=== PATIENT | female | born 1995 | race Caucasian/White ===

== ENCOUNTER 2018-08-28 12:10 | Outpatient (CLI) | payer SELFPAY ==
[2018-08-28 12:18] VITALS: BMI 33.1
[2018-08-28] MEDS: Terbutaline 1 MG/ML Vial 0.25 MG SC (13:01)
--- NOTE | 2018-08-29 00:35 | PCM.HP.OB ---
- Problem List (1) Transverse lie Status: Acute History Date of Admission: 08/28/18 Final CATINA: 08/30/18 Gestational age: 39 Weeks and 6 Days History of this : This is a 23 year-old, at 39w6d weeks gestational age presents as a referral from Maty Reyes for external cephalic version. She has had a variable presentation. She has been receiving care by the manager statistics and declines routine lab screenings. She is planning a home if the version is successful. she denies any vb lof admits good fm and denies regualr ctx. Surgical History: Surgical History (Last Updated 08/29/18 @ 00:37 by Yamile Pizarro MD) H/O heart artery stent Z95.5 age 14 secondary to murmur and persistent vessel open after History of appendectomy Z90.49 Allergies No Known Allergies Allergy (Unverified 08/28/18 11:44) Home Medications: Home Medications Prenatabs FA 1 tab PO DAILY 08/28/18 Smoking Status: Never smoker Alcohol: None Number of Fetus(es): 1 Heart Tracin moderate variability reactive no decelerations category I tracing\ [place]: regular History Past Pregnancies: Past Pregnancies 2 previous term uncomplicated weight 9 lbs- one home [facility] Expected Infant Delivery Method: Spontaneous Vaginal Review of Systems Constitutional: Denies: Fever, Malaise Eyes: Denies: Blurred vision, Vision Change HEENT: Denies: Head Aches, Visual Changes Cardiovascular: Denies: Chest Pain, Palpitations Respiratory: Denies: Cough, Shortness of Breath, Wheezing Gastrointestinal: Denies: Abdominal Pain, Diarrhea, Nausea, Vomiting Genitourinary: Denies: Dysuria, Hematuria Musculoskeletal: Denies: Joint Pain, Muscle pain Skin: Denies: Lesions, Rash Neurological: Denies: Blurred vision, Focal weakness, Headaches Psychiatric: Denies: Anxiety, Depression Endocrine: Denies: Heat/ Cold Intolerance Hematologic/ Lymphatic: Denies: Easy Bruising, Easy Bleeding Physical Exam General: Alert, Cooperative, No apparent distress HEENT: Atraumatic, Normocephalic. Negative for: Thyromegaly, Lymphadenopathy Cardiovascular: Regular rate Lungs: Normal air movement Abdomen: Soft, Non Tender, Gravid Neurological: Deep Tendon Reflexes 2+/4 and Symmetrical, Neuro grossly intact. Negative for: Clonus CIRCULATION TENDER: Normal external genitalia. Negative for: Vulvar lesions Estimated gestational size: Appropriate for gestational size Presentation: Transverse Assessment/Plan All Active Problems (Last Reviewed 08/28/18 @ 11:45 by Kortney Squires) Transverse lie (Acute) This is a 23 year-old, at 39W6D weeks gestational age PRSENTS WITH TRANSVERSE LIE recommend ECV. Patient states she is RH positive as does her record reflect this by her manager statistics. type and screen sent. reactive nst
--- NOTE | 2018-08-29 00:39 | HP.PCM_ITS ---
- Problem List (1) Transverse lie Status: Acute History Date of Admission: 08/28/18 Final CATINA: 08/30/18 Gestational age: 39 Weeks and 6 Days History of this : This is a 23 year-old, at 39w6d weeks gestational age presents as a referral from Maty Reyes for external cephalic version. She has had a variable presentation. She has been receiving care by the syrup maker and declines routine lab screenings. She is planning a home if the version is successful. she denies any vb lof admits good fm and denies regualr ctx. Surgical History: Surgical History (Last Updated 08/29/18 @ 00:37 by Yamile Pizarro MD) H/O heart artery stent Z95.5 age 14 secondary to murmur and persistent vessel open after History of appendectomy Z90.49 Allergies No Known Allergies Allergy (Unverified 08/28/18 11:44) Home Medications: Home Medications Prenatabs FA 1 tab PO DAILY 08/28/18 Smoking Status: Never smoker Alcohol: None Number of Fetus(es): 1 Heart Tracin moderate variability reactive no decelerations category I tracing\ [place]: regular History Past Pregnancies: Past Pregnancies 2 previous term uncomplicated weight 9 lbs- one home [facility] Expected Infant Delivery Method: Spontaneous Vaginal Review of Systems Constitutional: Denies: Fever, Malaise Eyes: Denies: Blurred vision, Vision Change HEENT: Denies: Head Aches, Visual Changes Cardiovascular: Denies: Chest Pain, Palpitations Respiratory: Denies: Cough, Shortness of Breath, Wheezing Gastrointestinal: Denies: Abdominal Pain, Diarrhea, Nausea, Vomiting Genitourinary: Denies: Dysuria, Hematuria Musculoskeletal: Denies: Joint Pain, Muscle pain Skin: Denies: Lesions, Rash Neurological: Denies: Blurred vision, Focal weakness, Headaches Psychiatric: Denies: Anxiety, Depression Endocrine: Denies: Heat/ Cold Intolerance Hematologic/ Lymphatic: Denies: Easy Bruising, Easy Bleeding Physical Exam General: Alert, Cooperative, No apparent distress HEENT: Atraumatic, Normocephalic. Negative for: Thyromegaly, Lymphadenopathy Cardiovascular: Regular rate Lungs: Normal air movement Abdomen: Soft, Non Tender, Gravid Neurological: Deep Tendon Reflexes 2+/4 and Symmetrical, Neuro grossly intact. Negative for: Clonus RN ENT: Normal external genitalia. Negative for: Vulvar lesions Estimated gestational size: Appropriate for gestational size Presentation: Transverse Assessment/Plan All Active Problems (Last Reviewed 08/28/18 @ 11:45 by Kortney Squires) Transverse lie (Acute) This is a 23 year-old, at 39W6D weeks gestational age PRSENTS WITH TRANSVERSE LIE recommend ECV. Patient states she is RH positive as does her record reflect this by her syrup maker. type and screen sent. reactive nst
--- NOTE | 2018-08-29 00:39 | PCM.OPRPT ---
Problem List (1) Transverse lie Status: Acute Report of Operation Date of Procedure: 08/28/18 Pre-Operative Diagnosis: transverse lie Post-Operative Diagnosis: cephalic Surgery/Procedure Performed:: external cephalic version Description of Surgical Findings:: transverse back up head maternal right Type of Anesthesia:: Other - terb given Special Medications: terb Description of Procedure: After reactive NST ultrasound confirmed that the fetus was in a transverse presentation with the head in the maternal right back up. Steady constant pressure was placed over the presenting part in the pelvis and upward pressure on the left side of the abdomen and downward pressure on the right side of the abdomen was employed to encourage spontaneous turning of the to a cephalic presentation. This was accomplished after several attempts and then a binder was placed to ensure stability. Patient was monitored afterwards and was reactive and reassuring and stable for discharge to home. After patient was discharged to home it was noted that the patient's type and screen was actually Rh- even though she stated it was Rh+. Her meat processor was contacted and was explained to her that she needed to be given a RhoGam dose immediately due to the procedure as indicated.
--- NOTE | 2018-08-29 00:42 | OP.PCM_ITS ---
Problem List (1) Transverse lie Status: Acute Report of Operation Date of Procedure: 08/28/18 Pre-Operative Diagnosis: transverse lie Post-Operative Diagnosis: cephalic Surgery/Procedure Performed:: external cephalic version Description of Surgical Findings:: transverse back up head maternal right Type of Anesthesia:: Other - terb given Special Medications: terb Description of Procedure: After reactive NST ultrasound confirmed that the fetus was in a transverse presentation with the head in the maternal right back up. Steady constant pressure was placed over the presenting part in the pelvis and upward pressure on the left side of the abdomen and downward pressure on the right side of the abdomen was employed to encourage spontaneous turning of the to a cephalic presentation. This was accomplished after several attempts and then a binder was placed to ensure stability. Patient was monitored afterwards and was reactive and reassuring and stable for discharge to home. After patient was discharged to home it was noted that the patient's type and screen was actually Rh- even though she stated it was Rh+. Her cranberry farm supervisor was contacted and was explained to her that she needed to be given a RhoGam dose immediately due to the procedure as indicated.
== END 2018-08-28 16:30 | disposition home or self-care (01) ==
LOC: WPOUT 12:15 → WP 12:16
PROVIDERS: Referring Provider Obstetrics & Gynecology; Visit Provider Obstetrics & Gynecology
DX: O32.2XX0 Maternal care for transverse and oblique lie, not applicable or unspecified (principal); Z3A.39 39 weeks gestation of pregnancy
CPT/HCPCS: 59025; 59050; 59412; 76815; 86850; 86900; 99218; G0378

== ENCOUNTER 2020-08-17 09:45 | Outpatient (CLI) | payer SELFPAY ==
[2020-08-17 10:09] VITALS: BP 125/71; TEMP 36.2
[2020-08-17 10:10] VITALS: PULSE 81; O2SAT 95
[2020-08-17 10:13] VITALS: BMI 33.5
[2020-08-17] MEDS: Lactated Ringers 1,000 ML 125 ML IV (10:35)
[2020-08-17 10:43] LABS: Absolute Lymphocyte Count 1.88 X10^3/uL (0.83-4.51); Absolute Neutrophil Count 6.2 X10^3/uL (2.0-7.7); Basophil# 0.02 X10^3/uL; Basophil% 0.2 % (0-1); Eosinophil# 0.06 X10^3/uL; Eosinophils% 0.7 % (0-5); Hematocrit 35.8 % (37-47); Hemoglobin 12.2 g/dL (12.0-15.0); Lymphocyte # 1.88 X10^3/ul (4.0); Lymphocyte % 21.3 % (19-41); Mean Corp Hgb Conc 34.1 g/dL (32-36); Mean Corpuscular Volume 91.1 fL (81-99); Mean Platelet Vol. 9.7 fl (6.2-12.0); Monocyte# 0.59 X10^3/uL; Monocyte% 6.7 % (0-10); NRBC Flagged by Analyzer 0 % (0-5); Neutrophil # 6.21 X10^3/uL (2.7-7.7); Neutrophil % 70.5 % (47-70); Platelet Count 218 K/mm3 (150-450); Red Blood Count 3.93 M/mm3 (4.2-5.4); White Blood Count 8.8 K/mm3 (4.4-11.0)
[2020-08-17] MEDS: Terbutaline 1 MG/ML Vial 0.25 MG SC (11:22)
[2020-08-17 12:38] VITALS: BP 125/74; PULSE 91; PULSE 96; TEMP 36.6; O2SAT 96
--- NOTE | 2020-08-18 08:49 | PCM.HP.OB ---
- Problem List (1) Transverse lie Status: Acute History Date of Admission: 08/28/18 Final CATINA: 08/21/20 Gestational age: 39 Weeks and 4 Days History of this : This is a 25 year-old, G 4P3, at 39 weeks gestational age for evaluation and management due to malpresentation. Patient has been receiving routine care from a parquetry floor layer Maty Reyes in the community and has a history of a breech presentation that was converted via external cephalic version in her last . She has had 3 uncomplicated vaginal births has been healthy without complication and has had fundal heights corresponding to her gestational age. Surgical History: Surgical History (Last Updated 08/29/18 @ 00:[address] Yamile Pizarro MD) H/O heart artery stent Z95.5 age 14 secondary to murmur and persistent vessel open after History of appendectomy Z90.49 Allergies No Known Allergies Allergy (Verified 08/17/20 10:14) Home Medications: Home Medications Prenatabs FA 1 tab PO DAILY 08/28/18 Acidophilus 1 tab PO DAILY 08/17/20 Calcium 1 tab PO DAILY 08/17/20 Vitamin C 1 tab PO DAILY 08/17/20 Smoking Status: Never smoker NST - FHR Rate Baby A Baseline: 150 Variability:: Moderate Accelerations:: 15 x 15 Decelerations:: None NST Reactive:: Yes FHR Category:: Category I Uterine Activity:: no Regular History Past Pregnancies: Past Pregnancies Delivery Date Name GA/ Weeks Outcome Route Wt Sex Labor Length Anesthesia Delivery Location Provider FOB Expected Infant Delivery Method: Spontaneous Vaginal Review of Systems Constitutional: Denies: Fever, Malaise Eyes: Denies: Blurred vision, Vision Change HEENT: Denies: Head Aches, Visual Changes Cardiovascular: Denies: Chest Pain, Palpitations Respiratory: Denies: Cough, Shortness of Breath, Wheezing Gastrointestinal: Denies: Abdominal Pain, Diarrhea, Nausea, Vomiting Genitourinary: Denies: Dysuria, Hematuria Musculoskeletal: Denies: Joint Pain, Muscle pain Skin: Denies: Lesions, Rash Neurological: Denies: Blurred vision, Focal weakness, Headaches Psychiatric: Denies: Anxiety, Depression Endocrine: Denies: Heat/ Cold Intolerance Hematologic/ Lymphatic: Denies: Easy Bruising, Easy Bleeding Physical Exam Vitals: Vital Signs Temp Pulse BP Pulse Ox 97.9 F 96 125/74 H 96 08/17/20 12:38 08/17/20 12:38 08/17/20 12:38 08/17/20 12:38 General: Alert, Cooperative, No apparent distress HEENT: Atraumatic, Normocephalic. Negative for: Thyromegaly, Lymphadenopathy Cardiovascular: Regular rate Lungs: Normal air movement Abdomen: Soft, Non Tender, Gravid Neurological: Deep Tendon Reflexes 2+/4 and Symmetrical, Neuro grossly intact. Negative for: Clonus DIE ASSEMBLER: Normal external genitalia. Negative for: Vulvar lesions Estimated gestational size: Appropriate for gestational size Presentation: Transverse - Back up maternal right head Assessment/Plan All Active Problems (Last Reviewed 08/28/18 @ 11:45 by Kortney Squires) Breech presentation (Acute) Transverse lie (Acute) This is a 25 year-old, at 39 weeks gestational age [facility] with transverse lie requesting external cephalic version patient was counseled regarding the risk benefits and alternatives of the procedure, she is Rh- but so is her therefore she is declining RhoGam. After reactive NST and ultrasound to confirm normal fluid and no significant cord entanglement external cephalic version was performed and successful. Patient was monitored for an hour afterwards with reassuring heart tones and discharged to home in stable condition to follow-up with her machine hand as previously scheduled. Patient requesting and planning home . Office Visits / Consults: [id number] OV L3 Est
--- NOTE | 2020-08-18 08:52 | PCM.OPRPT ---
Problem List (1) Transverse lie Status: Acute Report of Operation Date of Procedure: 08/17/20 Pre-Operative Diagnosis: transverse lie head maternal right back up Post-Operative Diagnosis: cephalic presentation Surgery/Procedure Performed:: external cephalic version Type of Anesthesia:: None Special Medications: Terbutaline Description of Procedure: Ultrasound confirmed transverse presentation with maternal right side being the location of the infant's head. No significant cord entanglement was seen and placenta was noted to not be a previa or in the lower uterine segment. LOGAN appeared grossly adequate. Encouraging a forward roll steady pressure was exerted to turn the 's head and buttocks counterclockwise and after 2 attempts this was successful and confirmed on ultrasound with the head with good engagement. Continuous monitoring was done for an hour after the procedure and was reassuring with no abnormalities. Patient requested discharge to home for planned home with fabric lay out worker as originally planned. Multi Select Codes - Urinary/Genital Urinary/Genital CPT Codes: 08991 ECV - no anesthesia needed
== END 2020-08-17 14:15 | disposition home or self-care (01) ==
LOC: WPOUT 09:59 → WP 09:59
PROVIDERS: Referring Provider Obstetrics & Gynecology; Visit Provider Obstetrics & Gynecology
DX: O32.1XX0 Maternal care for breech presentation, not applicable or unspecified (principal); O32.2XX0 Maternal care for transverse and oblique lie, not applicable or unspecified; Z3A.39 39 weeks gestation of pregnancy
CPT/HCPCS: 59412; 96360; 96361 ×2; 36415; 59025; 59050; 85025; 86850; 86900; 86901; 96372; 99218; J7120; G0378

== ENCOUNTER 2020-08-28 08:00 | Inpatient (IN) | payer SELFPAY ==
[2020-08-28] VITALS (75 sets, daily range): BP systolic 117–137; BP diastolic 57–86; PULSE 68–190; RESP 16–18; TEMP 36.1–37.2; O2SAT 82–100; BMI 34.1
[2020-08-28] MEDS: Lactated Ringers 1,000 ML 50 ML IV (08:20)
[2020-08-28 09:04] LABS: Absolute Lymphocyte Count 1.82 X10^3/uL (0.83-4.51); Absolute Neutrophil Count 6.8 X10^3/uL (2.0-7.7); Basophil# 0.03 X10^3/uL; Basophil% 0.3 % (0-1); Eosinophil# 0.09 X10^3/uL; Eosinophils% 0.9 % (0-5); Hematocrit 35.7 % (37-47); Lymphocyte # 1.82 X10^3/ul (4.0); Mean Corp Hgb Conc 33.6 g/dL (32-36); Mean Corpuscular Hgb 30.9 pg (27.0-32.0); Monocyte# 0.84 X10^3/uL; Monocyte% 8.8 % (0-10); NRBC Flagged by Analyzer 0 % (0-5); Neutrophil # 6.76 X10^3/uL (2.7-7.7); Neutrophil % 70.4 % (47-70); Platelet Count 226 K/mm3 (150-450); RBC Distribution Width CV 13.2 % (11.6-14.6); RBC Distribution Width SD 43.5 fl (35.1-43.9); Red Blood Count 3.88 M/mm3 (4.2-5.4); White Blood Count 9.6 K/mm3 (4.4-11.0)
[2020-08-28 09:19] LABS: Amphetamine Urine VISTA NEGATIVE (<1000 ng/mL); Barbiturate Urine VISTA NEGATIVE (< 200 ng/mL); Benzodiazepine Urine VISTA NEGATIVE (< 200 ng/mL); Cocaine Urine VISTA NEGATIVE (< 300 ng/mL); Ecstacy Urine VISTA NEGATIVE (< 500 ng/mL); Methadone Urine VISTA NEGATIVE (< 300 ng/mL); PCP Urine VISTA NEGATIVE (< 25 ng/mL); THC Urine VISTA NEGATIVE (< 50 ng/mL); Vista UDS pH Range 6
[2020-08-28] MEDS: Oxytocin 30 units/NS 500 ml 30 UNITS/500 ML IV.SOLN IV (09:27)
[2020-08-28 09:33] LABS: Rubella IgG Reactive (Nonreactive)
[2020-08-28 10:08] LABS: HIV - WCH Non-Reactive (Nonreactive); Hepatitis B Surface Antigen Non-Reactive (Nonreactive); Hepatitis C Antibody Non-Reactive (Nonreactive)
[2020-08-28 10:31] LABS: Group B Strep DNA By PCR Negative (Negative); Internal Control PASS; Probe Check PASS; Specimen Processing Control PASS
[2020-08-28 11:07] LABS: Chlamydia Trachomatis by PCR Negative (Negative); Neisserai gonorrhoeae by PCR Negative (Negative); Probe Check PASS; Sample Adequacy Control PASS; Specimen Processing Control PASS
--- NOTE | 2020-08-28 11:43 | PCM.HP.OB ---
History Date of Admission: 08/28/18 Final CATINA: 08/21/20 Gestational age: 41 Weeks and 0 Days History of this : This is a 25 year-old, G 4P3 at 41 weeks gestational age presents with unstable lie head on maternal right. Patient had a successful external cephalic version a week and a half ago and has not gone into labor and then was noted to be transverse again today by her product management intern. She has received care by a product management intern Maty Reyes and other than unstable lie has had an uncomplicated . She has not had a formal ultrasound or routine labs. Surgical History: Surgical History (Last Updated 08/29/18 @ 00:[address] Yamile Pizarro MD) H/O heart artery stent Z95.5 age 14 secondary to murmur and persistent vessel open after History of appendectomy Z90.49 Allergies No Known Allergies Allergy (Verified 08/17/20 10:14) Home Medications: Home Medications Prenatabs FA 1 tab PO DAILY 08/28/18 Acidophilus 1 tab PO DAILY 08/17/20 Calcium 1 tab PO DAILY 08/17/20 Vitamin C 1 tab PO DAILY 08/17/20 Smoking Status: Never smoker Alcohol: None NST - FHR Rate Baby A Baseline: 150 Variability:: Moderate Accelerations:: 15 x 15 Decelerations:: None NST Reactive:: Yes FHR Category:: Category I Uterine Activity:: irregular History Past Pregnancies: Past Pregnancies 3 previous term vaginal deliveries with home births. Previous also had external cephalic version that was successful and then she proceeded to go into spontaneous labor and deliver at home. Labs: Mom's Microbiology 08/28/20 Unknown Genital vaginal Group B Streptococcus Culture - Pending 08/28/20 08:55 Mucosa - Nose SARS-CoV-2 Antigen (Rapid) - Final Mom's Labs & Results 08/28/20 08/28/20 08/28/20 08:20 08:20 08:20 WBC 9.6 RBC 3.88 L Hgb 12.0 Hct 35.7 L MCV 92.0 MCH 30.9 MCHC 33.6 RDW Std Deviation 43.5 RDW Coeff of Alexandra 13.2 Plt Count 226 MPV 10.0 Immature Gran % (Auto) 0.600 Neut % (Auto) 70.4 H Lymph % (Auto) 19.0 Lipscomb % (Auto) 8.8 Eos % (Auto) 0.9 Baso % (Auto) 0.3 Absolute Neuts (auto) 6.8 Absolute Lymphs (auto) 1.82 Nucleated RBC % 0 Urine Opiates Screen Urine Methadone Screen Ur Barbiturates Screen Ur Phencyclidine Scrn Ur Amphetamines Screen U Methamphetamin-MDMA U Benzodiazepines Scrn Urine Cocaine Screen U Cannabinoids Screen Ur Drug Screen Comment RPR Chlam trachomat DNA PCR Hep Bs Antigen Hepatitis C Antibody HIV 1&2 Antibody N.gonorrhoeae DNA (PCR) Rubella IgG Antibody Reactive Group B Strep DNA Specimen Comment Blood Type O NEGATIVE Antibody Screen NEGATIVE 08/28/20 08/28/20 08/28/20 08:20 08:20 08:20 WBC RBC Hgb Hct MCV MCH MCHC RDW Std Deviation RDW Coeff of Alexandra Plt Count MPV Immature Gran % (Auto) Neut % (Auto) Lymph % (Auto) Lipscomb % (Auto) Eos % (Auto) Baso % (Auto) Absolute Neuts (auto) Absolute Lymphs (auto) Nucleated RBC % Urine Opiates Screen NEGATIVE Urine Methadone Screen NEGATIVE Ur Barbiturates Screen NEGATIVE Ur Phencyclidine Scrn NEGATIVE Ur Amphetamines Screen NEGATIVE U Methamphetamin-MDMA NEGATIVE U Benzodiazepines Scrn NEGATIVE Urine Cocaine Screen NEGATIVE U Cannabinoids Screen NEGATIVE Ur Drug Screen Comment RPR Pending Chlam trachomat DNA PCR Hep Bs Antigen Non-Reactive Hepatitis C Antibody Non-Reactive HIV 1&2 Antibody Non-Reactive N.gonorrhoeae DNA (PCR) Rubella IgG Antibody Group B Strep DNA Specimen Comment Blood Type Antibody Screen 08/28/20 09:10 WBC RBC Hgb Hct MCV MCH MCHC RDW Std Deviation RDW Coeff of Alexandra Plt Count MPV Immature Gran % (Auto) Neut % (Auto) Lymph % (Auto) Lipscomb % (Auto) Eos % (Auto) Baso % (Auto) Absolute Neuts (auto) Absolute Lymphs (auto) Nucleated RBC % Urine Opiates Screen Urine Methadone Screen Ur Barbiturates Screen Ur Phencyclidine Scrn Ur Amphetamines Screen U Methamphetamin-MDMA U Benzodiazepines Scrn Urine Cocaine Screen U Cannabinoids Screen Ur Drug Screen Comment RPR Chlam trachomat DNA PCR Negative Hep Bs Antigen Hepatitis C Antibody HIV 1&2 Antibody N.gonorrhoeae DNA (PCR) Negative Rubella IgG Antibody Group B Strep DNA Negative Specimen Comment Not Reportable Blood Type Antibody Screen Course Did the patient receive No care? Labs Blood Type: O RH: NEGATIVE RPR/VDRL/Syphilis Nonreactive Rubella status Immune HbSAg Negative Date Done: 08/28/20 HIV/AIDS Non-Reactive Group B Strep: Collected on Admission Current Obstetrical History Gestational Diabetes No Incompetent Cervix No Infertility No IUGR No Macrosomia No Hypertension/Pre-eclampsia No Placenta Previa/Abruption No PTL/PROM No Uterine anomaly No Oligohydramnios No Polyhydramnios No Multiple gestation No Past Medical History Asthma No Diabetes No Hypertension No Heart disease Yes: stent in heart Mitral valve prolapse No Neurologic/Seizure disorder/ No Migraines Kidney disease No Liver disease No Varicosities No Clotting disorders/Hx of DVT No Thyroid Dysfunction No Other medical diseases No Psychiatric disorders No Major trauma No Abnormal PAP smear No Sleep apnea No Mammogram in the last 2 years No Social History Marital Status: Alleged father Juan Hx Smoking No Smoking Status Never smoker Expected Delivery Method: Spontaneous Vaginal Review of Systems Constitutional: Denies: Fever, Malaise Eyes: Denies: Blurred vision, Vision Change HEENT: Denies: Head Aches, Visual Changes Cardiovascular: Denies: Chest Pain, Palpitations Respiratory: Denies: Cough, Shortness of Breath, Wheezing Gastrointestinal: Denies: Abdominal Pain, Diarrhea, Nausea, Vomiting Genitourinary: Denies: Dysuria, Hematuria Musculoskeletal: Denies: Joint Pain, Muscle pain Skin: Denies: Lesions, Rash Neurological: Denies: Blurred vision, Focal weakness, Headaches Psychiatric: Denies: Anxiety, Depression Endocrine: Denies: Heat/ Cold Intolerance Hematologic/ Lymphatic: Denies: Easy Bruising, Easy Bleeding Physical Exam Vitals: Vital Signs Temp Pulse BP Pulse Ox 98.5 F 73 121/68 H 100 08/28/20 11:36 08/28/20 11:36 08/28/20 11:36 08/28/20 11:36 General: Alert, Cooperative, No apparent distress HEENT: Atraumatic, Normocephalic. Negative for: Thyromegaly, Lymphadenopathy Cardiovascular: Regular rate Lungs: Normal air movement Abdomen: Soft, Non Tender, Gravid Neurological: Deep Tendon Reflexes 2+/4 and Symmetrical, Neuro grossly intact. Negative for: Clonus OCEAN EXPORT ACCOUNT MANAGER: Normal external genitalia. Negative for: Vulvar lesions Estimated gestational size: Appropriate for gestational size Presentation: Cephalic Assessment/Plan All Active Problems (Last Reviewed 08/28/18 @ 11:45 by Kortney Squires) Rh negative status during (Acute) Breech presentation (Acute) Transverse lie (Acute) This is a 25 year-old, G 4P3 at 41 weeks gestational age presents in transverse presentation Patient consented for external cephalic version. Gentle pressure applied to the back of the head on the maternal right and with gentle constant pressure infant was converted to vertex and abdominal binder placed. Pitocin started for induction of labor. Patient declines epidural at this time. Plan Pitocin per protocol and AROM when able. [id number]: [id number] V
[2020-08-28] MEDS: Lactated Ringers 500 ML 999 ML IV (17:27)
[2020-08-28] MEDS: Amnioinfusion- 0.9% NS 1,000 ML IV.SOLN. 999 ML INTRA-UTER (17:55)
--- NOTE | 2020-08-28 18:37 | PCM.PN.BLA ---
Progress Note heart rate tracing category 2/ 150 with recurrent periodic variables lasting 40 to 60 seconds going 60-80 beats below the baseline. 30 minutes after position changes and a fluid bolus was started Pitocin decreased, amnioinfusion was given with IUPC placed. After another 30 minutes pattern remained persistent category 2 patient is still remote from delivery /2 and posterior. Suspect nuchal cord limiting descent into the pelvis and causing recurrent decelerations. Patient and counseled and recommend proceeding with primary for delivery. STROKE Vital Signs/Narrative: Vital Signs Temp Pulse BP Pulse Ox 08/28/20 18:01 98.9 F 78 134/68 H 100 08/28/20 16:13 98.9 F 76 131/77 H 08/28/20 14:52 98.5 F 74 117/69 98
--- NOTE | 2020-08-28 18:44 | OP.PCM_ITS ---
Problem List (1) Rh negative status during Status: Acute (2) Transverse lie Status: Acute Report of Operation Date of Procedure: 08/28/20 Delivery Classification: VIJAY Final CATINA: 08/21/20 Gestational age: 41 Weeks and 0 Days cable television technician: Daniella Montilla Type of Anesthesia:: Spinal Date of Procedure: 08/28/20 Pre-Operative Diagnosis: recurrent heart rate decelerations category 2 tracing remote from delivery Indications: same Indications for : Distress, Arrrest of Descent Description of Procedure: Patient presented for induction of labor and external cephalic version for the second time due to unstable lie. Version was successful and Pitocin started for induction of labor. After 10 hours of Pitocin patient had only made a centimeter and a half of cervical change and the head was still high and she began having recurrent heart rate decelerations that after an hour of interventions had not resolved. Due to a category 2 tracing that was persistent and patient is still remote from delivery the decision for primary low transverse was made. Spinal anesthesia was placed without difficulty. Rosales catheter was placed. The patient was placed in the dorsal supine position with leftward tilt. Patient was prepped and draped in the normal sterile fashion. Pfannenstiel skin incision was made with the scalpel and carried through to the underlying layer of fascia with the scalpel. Fascia was nicked in the midline and the incision extended laterally. The rectus bellies were dissected off superiorly and inferiorly with out complication both sharply and bluntly. The peritoneum was entered digitally. The incision was stretched and a low transverse uterine incision was made with the scalpel. The 's head was delivered atraumatically followed by the anterior and posterior shoulders without complication the rest of the delivered. The cord was clamped and cut and the infant was handed off to awaiting nurse. The placenta was delivered spontaneously immediately following and was noted to be intact and have a three-vessel cord. The uterus was exteriorized cleared of all clots and debris, and the incision was closed in a double layer closure using #1 Monocryl. The ovaries and fallopian tubes were noted to be within normal limits. The uterus was returned to the maternal abdomen and gutters were cleared of all clots and debris. The peritoneum was closed with 3-0 Monocryl in a running fashion. Gloves were changed prior to fascial closure. Fascia was closed with 0 PDS in a running fashion. Subcutaneous tissue was copiously irrigated and the skin was closed with 3-0 Monocryl in a subcuticular fashion. Mepilex dressing was applied without complication. Patient was taken to recovery in stable condition. It was discussed with the patient that based on the clinical information obtained during this encounter, combined with her history, at this time I would recommend vaginal deliveries for future deliveries if further pregnancies are desired. Amniotic Membrane Rupture Type: Artificial Placenta Disposition: [facility] Cord Entanglement: Around neck x 1, tight - Minimal [place]'s jelly Nuchal Cord Compression: With compression Cord Vessel Description: 3 Vessels Esitmated Blood Loss (ml): 400 Infant Gender: Female Delayed cord clamping: Yes Antibiotic Given: Ancef 2 grams IV x1, Zithromax 500 mg/5 mL X1 Pt instructed on risks of surgery: Bleeding, Anesthesia Risks, Infection, Injury to surrounding structure(s) including bowel and bladder Complications: None - Admit VTE Documentation VTE Present on Admission: No VTE Mechan Device Prophylaxis: SCD's Multi Select Codes - Urinary/Genital Urinary/Genital CPT Codes: 78921 delivery only
[2020-08-28] MEDS: Acetaminophen 500 MG Tablet PO (18:45)
[2020-08-28] MEDS: Sodium Citrate/Citric Acid 30 ML UDC PO (18:46)
[2020-08-28] MEDS: Cefazolin 2 GM in 0.9% Normal Saline 100 ML IV (18:52)
--- NOTE | 2020-08-28 18:52 | DCINST_ITS ---
Discharge Diet: No Restrictions Discharge Activity: May Not Drive - for 2 weeks, May not drive while taking narcotic pain medications., May Shower, May Take a Tub Bath - in 7 days May resume sexual activity in: 4-6 weeks Lifting Restrictions: 20 pounds Additional Activity Instructions:: Nothing in the vagina for 4-6 weeks. You may return to work/school in 6 weeks. Call your doctor if your incision/area has: Continuous Slow Oozing, Sudden Increased Bleeding, Increased Pain/ Swelling, Increased Redness, Foul Smelling Discharge Call your doctor if you observe: Fever of 101 or Higher, Using more than one pad per hour - for 2 hours Suture Line Care: Avoid Pulling/Pushing, Avoid Pinching/Bending Cleanse incision/area with: Keep Dressing Clean & Dry Additional Instructions: If you experience any of the following, contact your healthcare provider. * Bleeding that soaks a pad every hour for 2 hours * Fever 100.4 or higher * Unrelieved incision or abdominal pain * Swelling, redness, discharge or bleeding from your incision or episiotomy site * Your incision begins to separate * Problems urinating (including inability to urinate or burning while urinating). * Visual changes * Severe headache * Flu-like symptoms * Pain or redness in one of both of your breasts * Pain, warmth, tenderness or swelling in your legs, especially the calf area * Frequent nausea and vomiting * Symptoms of depression or anxiety If you experience any of the following, call 911 or go to the nearest Emergency Room. * Chest pain * Problems breathing * Seizure activity * Partial or complete paralysis of a body part, slurred speech, weakness or drooping of the face, or a sudden inability to walk or hold your balance Allergies/Adverse Reactions: Allergies No Known Allergies Allergy (Verified 08/17/20 10:14) Medications to take at Discharge Prenatabs FA 1 tab PO DAILY 08/28/18 Acidophilus 1 tab PO DAILY 08/17/20 Calcium 1 tab PO DAILY 08/17/20 Vitamin C 1 tab PO DAILY 08/17/20 Naproxen [Naprosyn] 250 - 500 mg PO Q8H PRN PRN #30 tab 08/28/20 Oxycodone HCl/Acetaminophen [Percocet 5-325] 1 - 2 tablet PO Q6H PRN PRN 7 Days #15 tablet 08/28/20 The following prescriptions were given: Naproxen [Naprosyn] 250 - 500 mg PO Q8H PRN PRN #30 tab PRN Reason: MILD PAIN Transmission Status: Pending to [facility] Oxycodone HCl/Acetaminophen [Percocet 5-325] 1 - 2 tablet PO Q6H PRN PRN 7 Days #15 tablet PRN Reason: Pain Transmission Status: Sent to [facility] Follow-Up: Call to make an appointment with your doctor for an incision check in 1-2 weeks. You will also need a 6 week post- follow up appointment. Test results from this visit will be discussed in further detail at your follow- up appointment, if applicable. Please Follow Up With: Yamile Pizarro MD - Call to make an appointment for an incision check in 1-2 [phone] When: You will need a post- check in 6 weeks. Primary Care Physician: Care Physician,No Primary [Primary Care Provider] -
[2020-08-28] MEDS: 0.9% Saline Lock 10 ML Syringe IV (20:15)
[2020-08-28] MEDS: Oxytocin 30 units/NS 500 ml 30 UNITS/500 ML IV.SOLN 167 UNITS IV (20:15)
[2020-08-28] MEDS: Acetaminophen 500 MG Tablet 1000 MG PO (22:58)
[2020-08-28] MEDS: Lactated Ringers 1,000 ML 100 ML IV (23:01)
[2020-08-29] VITALS (99 sets, daily range): BP systolic 114–127; BP diastolic 53–67; PULSE 31–107; RESP 16–18; TEMP 36.6–37.2; O2SAT 16–100
--- NOTE | 2020-08-29 01:32 | NURSING ---
Pt refused IV toradol. Education provided to pt.
--- NOTE | 2020-08-29 01:48 | NURSING ---
Report given to Kym MEYERS, taking over pt and care at this time.
--- NOTE | 2020-08-29 03:18 | PCM.PN.OB ---
Patient Problems: Active and Suspected Problems (Last Reviewed 08/28/18 @ 11:45 by Kortney Squires) Rh negative status during (Acute) Transverse lie (Acute) Subjective: Patient doing well without complaints. Tolerating PO. Ambulating and voiding without difficulty. feeding well. Denies chest pain, shortness of breath, calf pain/swelling, fevers, chills, lightheadedness. - Physical Exam Vitals/I&O's: Vital Signs Temp Pulse Resp BP Pulse Ox 98.7 F 67 18 127/59 H 98 08/29/20 01:32 08/29/20 03:16 08/29/20 01:32 08/29/20 03:16 08/29/20 03:13 Oxygen Delivery Method Room Air Weight: 205 lb 4.006 oz Body Mass Index (BMI) 34.1 Intake and Output for Last 24 Hours 08/27/20 08/28/20 08/29/20 23:59 23:59 23:59 Intake Total 2416.46 / 2416.46 300 / 300 Output Total 150 / 150 400 / 400 Balance 2266.46 / 2266.46 -100 / -100 General: Alert, Oriented x3 Microbiology Past 72 Hours 08/28/20 08:55 Mucosa - Nose SARS-CoV-2 Antigen (Rapid) - Final Laboratory Results 08/28/20 08:20: WBC 9.6, RBC 3.88 L, Hgb 12.0, Hct 35.7 L, MCV 92.0, MCH 30.9, MCHC 33.6, RDW Std Deviation 43.5, RDW Coeff of Alexandra 13.2, Plt Count 226, MPV 10.0, Immature Gran % (Auto) 0.600, Neut % (Auto) 70.4 H, Lymph % (Auto) 19.0, [place] % (Auto) 8.8, Eos % (Auto) 0.9, Baso % (Auto) 0.3, Absolute Neuts (auto) 6.8, Absolute Lymphs (auto) 1.82, Nucleated RBC % 0 08/28/20 08:20: Blood Type O NEGATIVE, Antibody Screen NEGATIVE 08/28/20 08:20: Rubella IgG Antibody Reactive 08/28/20 08:20: RPR Pending 08/28/20 08:20: Urine Opiates Screen NEGATIVE, Urine Methadone Screen NEGATIVE, Ur Barbiturates Screen NEGATIVE, Ur Phencyclidine Scrn NEGATIVE, Ur Amphetamines Screen NEGATIVE, U Methamphetamin-MDMA NEGATIVE, U Benzodiazepines Scrn NEGATIVE, Urine Cocaine Screen NEGATIVE, U Cannabinoids Screen NEGATIVE, Ur Drug Screen Comment 08/28/20 08:20: Hep Bs Antigen Non-Reactive, Hepatitis C Antibody Non-Reactive, HIV 1&2 Antibody Non-Reactive 08/28/20 09:10: Chlam trachomat DNA PCR Negative, N.gonorrhoeae DNA (PCR) Negative, Group B Strep DNA Negative, Specimen Comment Not Reportable Current Medications Acetaminophen (Acetaminophen 500 Mg Tablet) 1,000 mg PO Q6H [facility] Last Admin: 08/28/20 22:58 Dose: 1,000 mg Documented by: Bisacodyl (Bisacodyl 10 Mg Suppository) 10 mg RECTAL UD PRN PRN Reason: If no BM Diphenhydramine HCl (Diphenhydramine 25 Mg Capsule) 25 mg PO Q6H PRN PRN PRN Reason: ITCHING Stop: 08/29/20 19:26 Hydrocortisone (Hydrocortisone 2.5% Crm) 1 applic TOPICAL TID PRN PRN; Protocol PRN Reason: Discomfort Lactated Ringer's () 1,000 mls @ 100 mls/hr IV .Q10H [facility] Last Admin: 08/28/20 23:01 Dose: 100 mls/hr Documented by: Ketorolac Tromethamine (Ketorolac 30 Mg/Ml Syringe) 30 mg IV Q6H [facility] Stop: 08/29/20 19:01 Last Admin: 08/29/20 01:38 Dose: Not Given Documented by: Methylergonovine Maleate (Methylergonovine 0.2 Mg/Ml Ampul) 0.2 mg IM X1 PRN PRN Reason: Uterine Atony Nalbuphine HCl (Nalbuphine 10 Mg/Ml Ampul) 5 mg IV Q3H PRN PRN PRN Reason: ITCHING Stop: 08/29/20 19:26 Naloxone HCl (Naloxone 0.4 Mg/Ml Syringe) 0.02 mg IV Q1M PRN PRN Reason: RR <10 and pt unresponsive Naproxen (Naproxen 250 Mg Tablet) 500 mg PO Q8H [facility] Ondansetron HCl (Ondansetron 4 Mg/2 Ml Vial) 4 mg IV Q4H PRN PRN PRN Reason: Nausea Oxycodone HCl (Oxycodone 5 Mg Tablet) 5 - 10 mg PO Q4H PRN PRN PRN Reason: Pain Score 4-10 Prochlorperazine Edisylate (Prochlorperazine 10 Mg/2 Ml Vial) 10 mg IV Q6H PRN PRN PRN Reason: NAUSEA Senna/Docusate Sodium (Senna/Docusate Sodium 1 Tablet) 0 tablet PO DAILY ROCIO Simethicone (Simethicone 80 Mg Tablet) 80 mg PO PCHS PRN PRN Reason: Indigestion/stomach pain Sodium Chloride (0.9% Saline Lock 10 Ml Syringe) 5 - 15 ml IV UD PRN PRN Reason: SALINE FLUSH Last Admin: 08/28/20 20:15 Dose: 10 ml Documented by: Medical Necessity - Tobacco Use Smoking Status: Never smoker Assessment/Plan All Active Problems (Last Reviewed 08/28/18 @ 11:45 by Kortney Squires) Rh negative status during (Acute) Breech presentation (Acute) Transverse lie (Acute) s/p LTCS PPD # 1 1. routine post care 2. breast feeding- support given 3. rh negative- rhogam PRN 4. rubella immune
--- NOTE | 2020-08-29 03:30 | NURSING ---
0300 Assisted pt up to BR with first post op ambulation. Pt tolerated well with minimal pain, denies c/o dizziness. Pericare done, care addressed with pt.
[2020-08-29] MEDS: Acetaminophen 500 MG Tablet 1000 MG PO ×3 (05:15→19:00)
[2020-08-29 05:37] LABS: Hematocrit 33.1 % (37-47); Mean Corp Hgb Conc 33.2 g/dL (32-36); Mean Corpuscular Hgb 30.9 pg (27.0-32.0); Platelet Count 188 K/mm3 (150-450); RBC Distribution Width CV 13.2 % (11.6-14.6); RBC Distribution Width SD 45.1 fl (35.1-43.9); Red Blood Count 3.56 M/mm3 (4.2-5.4); White Blood Count 10.2 K/mm3 (4.4-11.0)
[2020-08-29] MEDS: Ketorolac 30 MG/ML Syringe IV (14:57)
[2020-08-29] MEDS: 0.9% Saline Lock 10 ML Syringe IV (15:00)
--- NOTE | 2020-08-29 15:44 | NURSING ---
1455 pt c/o gas pains- pt repositioned to left side; pt medicated with mylicon and toradol
--- NOTE | 2020-08-29 15:45 | NURSING ---
1525 pt states that she passed lots of gas and feels much better. pt states that she is going to take a nap
[2020-09-03 01:42] LABS: Rapid Plasmin Reagin (RPR) NONREACTIVE (NONREACTIVE)
== END 2020-08-29 21:20 | disposition home or self-care (01) | DRG 788 ==
PROVIDERS: Admitting Provider Obstetrics & Gynecology; Visit Provider Obstetrics & Gynecology
PROC: (CPT 59514; principal; 2020-08-17 11:45)
DX: O76 Abnormality in fetal heart rate and rhythm complicating labor and delivery (principal); Z37.0 Single live birth; O26.899 Other specified pregnancy related conditions, unspecified trimester; Z67.91 Unspecified blood type, Rh negative; O32.2XX0 Maternal care for transverse and oblique lie, not applicable or unspecified; O48.0 Post-term pregnancy; Z3A.41 41 weeks gestation of pregnancy; O69.1XX0 Labor and delivery complicated by cord around neck, with compression, not applicable or unspecified; O62.1 Secondary uterine inertia
CPT/HCPCS: 59025; 59050; 80307; 85025; 85027; 86592; 86703; 86762; 86803; 86850; 86900; 86901; 87081; 87340; 87426; 87491; 87591; 87653; 99218; J7030; J7120; A4216; G0378; J2405

== ENCOUNTER → 2022-07-08 | Outpatient (CLI) | payer SELFPAY ==
--- NOTE | 2022-07-08 12:16 | US_ITS ---
STUDY: SECOND AND THIRD TRIMESTER OBSTETRICAL ULTRASOUND REASON FOR EXAM: Female, 27 years old positioning LMP: 10/13/2021. TECHNIQUE: Transabdominal TECHNICAL QUALITY: Adequate. PRIOR ULTRASOUND: None. FINDINGS: There is a single intrauterine fetus. The fetus is in a transverse lie with the head on the maternal right side. There is demonstrated cardiac activity with a heart rate of 144 bpm. There is a normal amniotic fluid volume. The largest amniotic fluid pocket measures 5.1 cm. The amniotic fluid index (LOGAN) is 12.9 cm. The placenta is fundal and posterior in location. There are Grade 1 placental changes. The cervix measures 4 cm in length. The adnexal regions are not visualized. BIOMETRY: BPD: 9.24 cm: 37 weeks, 4 days HC: 33.95 cm: 39 weeks, 0 days AC: 36.2 cm: 40 weeks, 1 days FL: 7.17 cm: 36 weeks, 5 days CI: 81% FL/BPD: 78% FL/HC: FL/AC: 20% HC/AC: 0.94 age by current US: 38 weeks, 2 days. CATINA by current US: 07/20/2022. Estimated weight: 3654 grams, +/- 548 grams, 80 %. Age by LMP: 38 weeks, 2 days. CATINA by LMP: 07/20/2022. US/OB Limited With Biometrics IMPRESSION: Single live intrauterine gestation with a mean gestational age of 38 weeks and 2 days. The position is transverse lie with head on maternal right. Electronically Signed: Matt Burns MD at 15:10 EST ,
== END | disposition home or self-care (01) ==
PROVIDERS: Referring Provider Obstetrics & Gynecology; Visit Provider Obstetrics & Gynecology
DX: O32.1XX0 Maternal care for breech presentation, not applicable or unspecified (principal); Z3A.38 38 weeks gestation of pregnancy
CPT/HCPCS: 76816; 87077; 87081; 87186

== ENCOUNTER 2022-07-15 09:45 | Inpatient (IN) | payer SELFPAY ==
[2022-07-15] VITALS (17 sets, daily range): BP systolic 97–123; BP diastolic 50–74; PULSE 55–90; RESP 16–18; TEMP 36.1–36.9; O2SAT 94–100; BMI 35.9
[2022-07-15] MEDS: Lactated Ringers 1,000 ML 999 ML IV (10:15)
[2022-07-15 10:31] LABS: White Blood Count 7.9 K/mm3 (4.4-11.0)
[2022-07-15 10:32] LABS: Mucous, Urine 0 SEEN /hpf (<or=2+); Red Blood Cells-Urine 0 SEEN /hpf (0-5)
[2022-07-15 10:32] LABS: Absolute Lymphocyte Count 1.56 X10^3/uL (0.83-4.51); Absolute Neutrophil Count 5.4 X10^3/uL (2.0-7.7); Basophil# 0.02 X10^3/uL; Basophil% 0.3 % (0-1); Eosinophil# 0.08 X10^3/uL; Hematocrit 37.7 % (37-47); Hemoglobin 13.2 g/dL (12.0-15.0); Lymphocyte # 1.56 X10^3/ul (0.83-4.51); Lymphocyte % 19.8 % (19-41); Mean Corpuscular Hgb 33.2 pg (27.0-32.0); Mean Platelet Vol. 9.7 fl (6.2-12.0); Monocyte# 0.78 X10^3/uL; Monocyte% 9.9 % (0-10); NRBC Flagged by Analyzer 0 % (0-5); Neutrophil # 5.39 X10^3/uL (2.7-7.7); Neutrophil % 68.5 % (47-70); Platelet Count 211 K/mm3 (150-450); RBC Distribution Width CV 13.2 % (11.6-14.6); Red Blood Count 3.97 M/mm3 (4.2-5.4)
[2022-07-15 10:36] LABS: Color, Urine Yellow (Yellow); Glucose, Dipstick Normal (Normal); Ketone-Dipstick Negative (Negative); Leukocyte Esterase-Dipstick 25 /ul (Negative); Nitrite-Dipstick Negative (Negative); Occult Blood-Urine Negative /ul (Negative); Protein-Dipstick Negative (Negative); Specific Gravity, Urine 1.015 (1.002-1.030); Urine Bilirubin Dipstick Negative (Negative); Urine Clarity Sl. Cloudy (Clear); Urine Urobilinogen Normal (Normal); Urine pH 6.5 (5.0 - 8.0)
[2022-07-15] MEDS: Acetaminophen 500 MG Tablet 1000 MG PO ×3 (10:41→23:26)
[2022-07-15 10:42] LABS: Bacteria 1+ /hpf (None Seen); Squamous Epithelial Cells - UA 0-5 SEEN /hpf (5-10); White Blood Cells 0-5 SEEN /hpf (0-5)
[2022-07-15 10:58] LABS: Amphetamine Urine VISTA NEGATIVE (<1000 ng/mL); Barbiturate Urine VISTA NEGATIVE (< 200 ng/mL); Benzodiazepine Urine VISTA NEGATIVE (< 200 ng/mL); Cocaine Urine VISTA NEGATIVE (< 300 ng/mL); Ecstacy Urine VISTA NEGATIVE (< 500 ng/mL); Methadone Urine VISTA NEGATIVE (< 300 ng/mL); PCP Urine VISTA NEGATIVE (< 25 ng/mL); THC Urine VISTA NEGATIVE (< 50 ng/mL); Vista UDS pH Range 6
--- NOTE | 2022-07-15 10:59 | HP.PCM.OB_ITS ---
HPI - General General Date of Admission: 07/15/22 HPI Narrative DARLENE SHETTY, is a 27 @ 39 weeks who presents to L&D for repeat section. She was seen one time in our office as a referral from Maty Reyes, a heel layer in the community. The baby has also been in the breech presentation. GbS was collected at her last visit and formal scan was performed to rule out previa and gbs was pos, ultrasound was normal, breech presentation with normal LOGAN. Maternal Data Information CATINA Calculator Estimated Delivery Date Method Current WG Current Estimate 07/20/22 LMP (Certain) 39w 2d PFSH PFS Medical History (Updated 07/15/22 @ 10:17 by Ann Jacob) Superficial varicosities Home Medications Prenatabs FA 1 tab PO DAILY Check with primary doctor 08/28/18 [History Last Taken 07/14/22 20:30] ferrous sulfate 325 mg (65 mg iron) tablet 325 mg PO DAILY anemia 07/08/22 [History Last Taken 07/14/22 20:30] Allergy/AdvReac Type Severity Reaction Status Date / Time No Known Allergies Allergy Verified 07/15/22 10:31 Family History Grandfather No problems noted. Grandfather Myocardial infarction Grandmother Cancer Surgical History (Updated 07/15/22 @ 10:17 by Ann Jacob) H/O heart artery stent History of appendectomy Previous section S/P Social History (Updated 07/08/22 @ 09:29 by Erica Cordero) Smoking Status: Never smoker alcohol intake: never substance use type: does not use caffeine: No seatbelt use: always do you feel safe at home: Yes additional social history: [employer] Patient is a stay at home mom History 5 Elective abortions Hx Para 4 Spontaneous abortions Hx # Term Pregnancies Ectopic pregnancies Hx # Pregnancies Multiple births # of living children Past Pregnancies Del. Date Name GA/Weeks Outcome Route Bth Weight Infant Gen Labor Lgth Anesthesia Del Locatn Provider FOB Unknown Ynes live - full term Unknown 2016 Brion[facility] live - full term Unknown Melanie Unknown [facility] Dr. Osmel zaynab Delivery Date: Last Updated by: Erica Cordero Version Visit Details OB Flowsheet Initial Weight: Not Recorded Date -?-?-?-?-?-?-?-?-?-?-?-?- EGA Weight BP Urine Prot -?-?-?-?-?-?-?-?-?-?-?-?- Glucose FHR FuHt Pres Dilation -?-?-?-?-?-?-?-?-?-?-?-?- Effaced St Visit Note 07/08/22 -?-?-?-?-?--?-?-?-?-?-?-?- 38w 2d 211 lb 2 oz 119/79 -?-?-?-?-?-?-?-?-?-?-?-?- 145 39 Breech 0 -?-?-?-?-?-?-?-?-?-?-?-?- -4 JV- new transfer from Maty Reyes JV- new transfer from Maty denton. See HPI ROS Constitutional Constitutional: Denies change in weight, fatigue, fever(s), headache(s), poor appetite or weakness Eyes Eyes: Denies blurry vision, change in vision, seeing flashes or spots in vision ENT HEENT: Denies dizziness, headache(s), loss taste/smell or sore throat Cardiovascular Cardiovascular: Denies chest pain, dizziness, dyspnea, irregular heart rhythm, leg edema, palpitations, rapid heart rate or vomiting Respiratory/Chest Respiratory/Chest: Denies chest tightness, cough, dyspnea or breast pain Gastrointestinal Gastrointestinal: Denies abdominal pain, anorexia, constipation, cramping, diarrhea, hemorrhoids, vomiting or weight changes Genitourinary Genitourinary: Denies dysuria, flank pain, genital lesions, genital pain, urinary frequency or urinary urgency Musculoskeletal Musculoskeletal: Denies back pain, difficulty walking, joint pain, limited range of motion, muscle cramps or numbness Integumentary Integumentary: Denies lesions or unusual bruising Neurologic Neurologic: Denies abnormal movements, abnormal speech, dizziness, numbness, seizure-like activity or syncope Psychiatric Psychiatric: Denies anxiety, behavioral changes, change in appetite, change in libido, cognitive impairment, confusion, depression, difficulty concentrating, hallucinations or suicidal thoughts Endocrine Endocrinology: Denies excessive sweating, polydipsia or polyuria Hematologic/Lymphatic Hematologic/Lymphatic: Denies easy bleeding, easy bruising or lymphadenopathy Allergic/Immunologic Allergic/Immunologic: Denies itchy eyes, lip swelling, seasonal rhinorrhea, rhinitis, throat swelling, tongue swelling, eczemia, wheezing or asthma Vital Signs Vital Signs Vital Signs: 07/15/22 10:18 07/15/22 10:18 07/15/22 10:16 Temperature Temperature Source Temporal Pulse Rate 82 Respiratory Rate Blood Pressure 123/67 H Blood Pressure Mean BP Systolic 123 BP Diastolic 67 Blood Pressure Source Blood Pressure Position Blood Pressure Location Pulse Ox Oxygen Delivery Method 07/15/22 10:16 07/15/22 10:16 07/15/22 10:15 Temperature 98.3 F 98.3 F Temperature Source Temporal Pulse Rate 82 Respiratory Rate 17 Blood Pressure 123/67 H Blood Pressure Mean 85 BP Systolic BP Diastolic Blood Pressure Source Monitor Blood Pressure Position Semi-Fowlers Blood Pressure Location Left Arm Pulse Ox 97 97 Oxygen Delivery Method Room Air Weight Weight: 216 lb 0.848 oz Body Mass Index (BMI) 35.9 Physical Exam Const alert, oriented x3, no apparent distress and healthy appearing General Appearance: cooperative; Negative for anxious HEENT normocephalic Face and Sinus: normal facial exam Eyes EOMs intact bilaterally and no scleral icterus General Eye: normal appearance of both eyes Neck full ROM and supple Lymph Lymphatic: no lymphadenopathy noted Chest Chest: abnormal inspection of the chest Resp normal respiratory effort Effort and Inspection: able to speak in complete sentences Cardio regular rate GI soft to palpation and non-tender Inspection: gravid Palpation: soft; Negative for tender external exam normal Back/Spine no CVA tenderness Extremity normal to inspection, full ROM and no clubbing, cyanosis or edema General Extremity: Negative for calf tenderness or edema Skin Lesions: no lesions Rashes: no rashes Psych mental status grossly normal Labs Labs Labs: Blood Type O NEGATIVE Antibody Screen NEGATIVE Hct 37.7 % (37-47) Hgb 13.2 g/dL (12.0-15.0) Obstetrics US Syphilis Total Ab Pending Rubella IgG Antibody Reactive (Nonreactive) Hep Bs Antigen Non-Reactive (Nonreactive) HIV 1&2 Antibody Non-Reactive (Nonreactive) Group B Strep DNA Negative (Negative) Rhogam given: No Assessment & Plan (1) Breech presentation: COMMENT: @ 39 weeks. prior section plan for repeat . scheduled next week with JV PLAN: ERAS protocol for repeat section After discussing the patient's diagnosis and treatment plan options, patient wishes to proceed with surgical management. I have discussed with the patient the risks, benefits, and alternatives of the procedure which include but are not limited to risks of anesthesia, bleeding, infection, possible damage to bowel, bladder, or surrounding vasculature which could lead to additional surgery to evaluate any complications. Patient agrees to procedure and wishes to proceed. (2) Rh negative status during : COMMENT: FOB also Rh negative per patient (3) : (4) Supervision of normal : (5) Anemia affecting : (6) Positive GBS test:
[2022-07-15 11:07] LABS: Rubella IgG Reactive (Nonreactive); Syphilis Antibodies Non-reactive
[2022-07-15 11:10] LABS: Bedside Glucose 67 mg/dL (74-106)
[2022-07-15] MEDS: Lactated Ringers 1,000 ML 150 ML IV (11:18)
[2022-07-15 11:24] LABS: HIV - WCH Non-Reactive (Nonreactive); Hepatitis B Surface Antigen Non-Reactive (Nonreactive); Hepatitis C Antibody Non-Reactive (Nonreactive)
--- NOTE | 2022-07-15 11:28 | DCINST_ITS ---
Discharge Instructions Diet Discharge Diet: No restrictions Activity Discharge Activity: May Not Drive (for 2 weeks or while taking narcotic pain medications.), May Shower and May Take a Tub Bath (in 7 days.) May resume sexual activity in: 4-6 weeks Weight Bearing Status: Full weight bearing Lifting Restrictions: 20 pounds Dressing / Incision Call your doctor if your incision/area has: Continuous Slow Oozing, Sudden Increased Bleeding, Increased Pain/ Swelling, Increased Redness and Foul Smelling Discharge Call your doctor if you observe: Fever of 101 or Higher and Using more than 1 pad per hour Suture Line Care: Avoid Pulling/Pushing and Avoid Pinching/Bending Cleanse incision/area with: Soap & Water and Keep Dressing Clean & Dry Follow Up Care Please Follow Up With: Annika Vance DO When: Call [phone] to make an appointment for an incision check in 1-2 weeks. Test Results: Test results from this visit will be discussed in further detail at your follow- up appointment, if applicable. Discharge Plan Admission Admit Date/Time: 07/15/22 09:45 Primary Reason for Your Visit: section Attending Provider: Annika Vance Primary Care Provider: DAVIDE GRIFFIN Discharge Orders/Prescriptions Prescriptions: New oxycodone-acetaminophen [Percocet] 5-325 mg tablet 1 tab PO Q4H PRN (Reason: pain) 7 Days Qty: 30 0RF Rx Instructions: 1-2 tabs q 4 hrs as needed for pain naproxen 500 mg tablet 500 mg PO BID PRN (Reason: pain) Qty: 30 0RF Continued ferrous sulfate 325 mg (65 mg iron) tablet 325 mg PO DAILY Prenatabs FA 1 tab PO DAILY Referrals / Follow Up: DAVIDE GRIFFIN [Other] Disposition Disposition (needs filled in before D/C Order can be placed): Home, Self Care
[2022-07-15] MEDS: Sodium Citrate/Citric Acid 30 ML UDC PO (12:02)
[2022-07-15] MEDS: Cefazolin 2 GM in 0.9% Normal Saline 100 ML IV (12:12)
[2022-07-15 12:43] LABS: Chlamydia Trachomatis by PCR Negative (Negative); Neisserai gonorrhoeae by PCR Negative (Negative); Probe Check PASS; Sample Adequacy Control PASS; Specimen Processing Control PASS
--- NOTE | 2022-07-15 13:09 | OP.PCM_ITS ---
Assessment & Plan (1) Status post section: (2) Breech presentation: COMMENT: @ 39 weeks. prior section plan for repeat . scheduled next week with JV (3) Rh negative status during : COMMENT: FOB also Rh negative per patient (4) : (5) Supervision of normal : (6) Anemia affecting : (7) Positive GBS test: Maternal Data Information CATINA Calculator Estimated Delivery Date Method Current WG Current Estimate 07/20/22 LMP (Certain) 39w 2d Details Operative Information Date of Procedure: 07/15/22 Pre-Operative Diagnosis: , 39 weeks, breech presentation, prior section Post-Operative Diagnosis: , 39 weeks, breech presentation, prior section , bicornuate uterus Indications for : Breech Classification: Scheduled Procedure Type: low transverse upholstery tech #1: Afshan Tineo Type of Anesthesia: Spinal Antibiotic Given: Ancef 2 grams IV x1 Estimated Blood Loss: 500cc Findings Description of Procedure: The patient is a 27 y/o @ 39 weeks presented for repeat . Spinal anesthesia was placed without difficulty. Rosales catheter was placed. The patient was placed in the dorsal supine position with leftward tilt. Patient was prepped and draped in the normal sterile fashion. Pfannenstiel skin incision was made with the scalpel and carried through to the underlying layer of fascia with the scalpel. Fascia was nicked in the midline and the incision extended laterally. The rectus bellies were dissected off superiorly and inferiorly with out complication both sharply and bluntly. The peritoneum was entered digitally. The incision was stretched and a low transverse uterine incision was made with the scalpel. The 's buttocks was identified and delivered through the incision with both legs flexed. The was rotated to the right and the head was delivered atraumatically. The cord was clamped and cut and the infant was handed off to awaiting nurse. The placenta was delivered spontaneously immediately following and was noted to be intact and have a three- vessel cord. The uterus was exteriorized cleared of all clots and debris, and the incision was closed in a double layer closure using #1 Vicryl and #1 Mo nocryl. The ovaries and fallopian tubes were noted to be within normal limits. The uterus was returned to the maternal abdomen and gutters were cleared of all clots and debris. The peritoneum was closed with 3-0 Monocryl in a running fashion. Gloves were changed prior to fascial closure. Fascia was closed with 0 PDS in a running fashion. Subcutaneous tissue was copiously irrigated and the skin was closed with 3-0 Monocryl in a subcuticular fashion. Mepilex dressing was applied without complication. Patient was taken to recovery in stable condition. It was discussed with the patient that based on the clinical information obtained during this encounter, combined with her history, at this time I would recommend repeat sections for future deliveries if further pregnancies are desired. Presentation: Positive for Chauncey Breech Amniotic Membrane Rupture Type: Artificial Amniotic Fluid Description: Clear Placental Delivery Description: Manual Removal Placenta Disposition: [facility] Cord Vessel Description: 3 Vessels Cord Entanglement: None Infant A Gender: Male (1 minute): 8 (5 minute): 9 Delayed Cord Clamping: Yes Complications Risks of Surgery Discussed w/Patient: Bleeding, Anesthesia Risks, Infection, Need for Future C-Sections and Injury to surrounding structure(s) including bowel and bladder Multi Select Codes Urinary/Genital Urinary/Genital CPT Codes: 73631 Delivery [facility]
[2022-07-15] MEDS: Oxytocin 15 Units/NS 250ml 15 UNITS/250 ML IV.SOLN 83 UNITS IV (13:25)
[2022-07-15] MEDS: Ketorolac 30 MG/ML Syringe IV ×2 (14:02→20:06)
[2022-07-15] MEDS: 0.9% Saline Lock 10 ML Syringe IV ×2 (14:02→18:46)
[2022-07-16 00:09] VITALS: BP 107/57; PULSE 67; RESP 18; O2SAT 97
[2022-07-16] MEDS: Ketorolac 30 MG/ML Syringe IV ×2 (01:30→08:33)
[2022-07-16 05:09] VITALS: BP 114/70; PULSE 70; RESP 18
[2022-07-16] MEDS: Acetaminophen 500 MG Tablet 1000 MG PO ×2 (05:13→11:47)
[2022-07-16 05:24] LABS: Hematocrit 39.4 % (37-47); Hemoglobin 13.1 g/dL (12.0-15.0); Mean Corp Hgb Conc 33.2 g/dL (32-36); Mean Corpuscular Hgb 32.3 pg (27.0-32.0); Mean Corpuscular Volume 97.3 fL (81-99); Mean Platelet Vol. 9.9 fl (6.2-12.0); Platelet Count 168 K/mm3 (150-450); RBC Distribution Width CV 13.5 % (11.6-14.6); RBC Distribution Width SD 47.9 fl (35.1-43.9); Red Blood Count 4.05 M/mm3 (4.2-5.4); White Blood Count 9.2 K/mm3 (4.4-11.0)
--- NOTE | 2022-07-16 07:23 | PCM.PN.OB ---
Subjective Subjective Patient doing well without complaints. Tolerating PO. Ambulating and voiding without difficulty. feeding well. Denies chest pain, shortness of breath, calf pain/swelling, fevers, chills, lightheadedness. Objective Data Objective Data Vital Signs: Vital Signs Temp Pulse Resp BP Pulse Ox O2 Del Method 98.5 F 70 18 114/70 97 Room Air 07/15/22 20:05 07/16/22 05:09 07/16/22 05:09 07/16/22 05:09 07/16/22 00:09 07/16/22 05:09 Oxygen Delivery Method Room Air Weight: 98 kg Body Mass Index (BMI) 35.9 Intake & Output: Intake and Output for Last 24 Hours 07/14/22 07/15/22 07/16/22 23:59 23:59 23:59 Intake Total 2490 / 2490 Output Total 1500 / 1500 1000 / 1000 Balance 990 / 990 -1000 / -1000 Lab / Micro Data Result Diagrams: 07/16/22 05:15 Labs: Laboratory Results - last 24 hr 07/15/22 10:05: Urine Color Yellow, Urine Clarity Sl. Cloudy, Urine pH 6.5, Ur Specific [place] 1.015, Urine Protein Negative, Urine Glucose (UA) Normal, Urine Ketones Negative, Urine Occult Blood Negative, Urine Nitrite Negative, Urine Bilirubin Negative, Urine Urobilinogen Normal, Ur Leukocyte Esterase 25 H, Urine RBC 0 SEEN, Urine WBC 0-5 SEEN, Ur Squamous Epith Cells 0-5 SEEN, Urine Bacteria 1+, Urine Mucus 0 SEEN 07/15/22 10:05: Urine Opiates Screen NEGATIVE, Urine Methadone Screen NEGATIVE, Ur Barbiturates Screen NEGATIVE, Ur Phencyclidine Scrn NEGATIVE, Ur Amphetamines Screen NEGATIVE, MDMA (Ecstasy) Screen NEGATIVE, U Benzodiazepines Scrn NEGATIVE, Urine Cocaine Screen NEGATIVE, U Cannabinoids Screen NEGATIVE, Ur Drug Screen Comment 07/15/22 10:05: Chlam trachomat DNA PCR Negative, N.gonorrhoeae DNA (PCR) Negative 07/15/22 10:15: WBC 7.9, RBC 3.97 L, Hgb 13.2, Hct 37.7, MCV 95.0, MCH 33.2 H, MCHC 35.0, RDW Std Deviation 46.0 H, RDW Coeff of Alexandra 13.2, Plt Count 211, MPV 9.7, Immature Gran % (Auto) 0.500, Neut % (Auto) 68.5, Lymph % (Auto) 19.8, [place] % (Auto) 9.9, Eos % (Auto) 1.0, Baso % (Auto) 0.3, Absolute Neuts (auto) 5.4, Absolute Lymphs (auto) 1.56, Nucleated RBC % 0 07/15/22 10:15: Syphilis Total Ab Non-reactive, Rubella IgG Antibody Reactive 07/15/22 10:15: Blood Type O NEGATIVE, Antibody Screen NEGATIVE 07/15/22 10:15: Hep Bs Antigen Non-Reactive, Hepatitis C Antibody Non-Reactive, HIV 1&2 Antibody Non-Reactive 07/15/22 10:52: POC Glucose 67 L 07/16/22 05:15: WBC 9.2, RBC 4.05 L, Hgb 13.1, Hct 39.4, MCV 97.3, MCH 32.3 H, MCHC 33.2 D, RDW Std Deviation 47.9 H, RDW Coeff of Alexandra 13.5, Plt Count 168, MPV 9.9 ROS Constitutional Constitutional: Reports systems reviewed and no addt'l complaints, except as documented Cardiovascular Cardiovascular: Reports systems reviewed and no addt'l complaints, except as documented Respiratory/Chest Respiratory/Chest: Reports systems reviewed and no addt'l complaints, except as documented Gastrointestinal Gastrointestinal: Reports systems reviewed and no addt'l complaints, except as documented Physical Exam Const alert, oriented x3 and no apparent distress HEENT Head and Scalp: atraumatic Resp normal respiratory effort GI soft to palpation and non-tender Inspection: incision intact, healing well and drainage (none) Bimanual Exam - Vag & Uterus: uterus non-tender Uterus Palpation: uterus fundus firm (below Umbilicus) Assessment & Plan (1) Rh negative status during : COMMENT: FOB also Rh negative per patient (2) Anemia affecting : (3) Positive GBS test: PLAN: Plan s/p LTCS PPD # 1 1. routine post care 2. breast feeding- support given 3. rh positive 4. rubella immune
[2022-07-16 08:30] VITALS: BP 111/73; PULSE 68; RESP 16; TEMP 36.4
[2022-07-16] MEDS: 0.9% Saline Lock 10 ML Syringe IV (08:34)
[2022-07-16] MEDS: Ibuprofen 600 MG Tablet PO (11:47)
[2022-07-16] MEDS: Senna/Docusate Sodium 1 Tablet PO (11:48)
[2022-07-16 11:53] VITALS: BP 124/52; PULSE 78; RESP 16; TEMP 36.9
== END 2022-07-16 14:30 | disposition home or self-care (01) | DRG 788 ==
PROVIDERS: Admitting Provider Obstetrics & Gynecology; Visit Provider Obstetrics & Gynecology
PROC: 10D00Z1 Extraction of Products of Conception, Low, Open Approach (ICD-10-PCS; CPT 59514; principal; 2022-07-15 11:45)
DX: O32.1XX0 Maternal care for breech presentation, not applicable or unspecified (principal); O26.893 Other specified pregnancy related conditions, third trimester; O34.211 Maternal care for low transverse scar from previous cesarean delivery; Z67.41 Type O blood, Rh negative; Z3A.39 39 weeks gestation of pregnancy; O99.824 Streptococcus B carrier state complicating childbirth; O99.02 Anemia complicating childbirth; O34.03 Maternal care for unspecified congenital malformation of uterus, third trimester; Q51.3 Bicornate uterus; Z37.0 Single live birth; Z95.5 Presence of coronary angioplasty implant and graft
CPT/HCPCS: 59050; 80307; 81001; 82962; 85025; 85027; 86703; 86762; 86780; 86803; 86850; 86900; 86901; 87340; 87491; 87591; 99218; J7120; A4216; G0378; J2405

== ENCOUNTER → 2024-10-24 | Outpatient (CLI) | payer SELFPAY ==
--- NOTE | 2024-10-24 17:24 | US_ITS ---
PROCEDURE: OB LIMITED WITH BIOMETRICS 10/24/2024 REASON FOR EXAM: WELL BEING TECHNIQUE: High resolution obstetric ultrasound performed using a 2D transducer. Standard views obtained, including biometry, anatomy survey, and Doppler studies. COMPARISON: No prior study available for comparison. FINDINGS LMP: January 30, 2024 Number: 1 Position: Transverse right Placental Position: Posterior and not low-lying Placental Abnormalities: No evidence of previa or accreta. DIMENSIONS: Biparietal Diameter: 9.1 cm: 36 weeks and 5 days: 33 percentile/ Head Circumference: Head circumference: 33.8 cm: 38 weeks and 6 days: 44 percentile/ Abdominal Circumference: 35.6 cm: 39 weeks and 3 days: 92 percentile/ Femur Length: 7.4 cm: 37 weeks and 6 days: 44 percentile/ ESTIMATED WEIGHT: 3573 g plus/-536 g ESTIMATED WEIGHT PERCENTILE (24+ weeks): 74 ESTIMATED GESTATIONAL AGE: Baseline: 38 weeks and 2 days By Ultrasound: 38 weeks and 2 days ESTIMATED DATE OF DELIVERY: Baseline: November 05, 2024 By Ultrasound: November 05, 2024 BIOPHYSICAL ASSESSMENT: Amniotic Fluid Volume: 6.1 cm Amniotic Fluid Index: 19.2 (8-24 cm normal range) Cardiac Motion: 155 beats per minute (average) Trunk and Limb Motion: Present. MATERNAL ANATOMY: Adnexa: Neither maternal ovary is successfully identified. Cervical Length (if measured): US/OB Limited With Biometrics IMPRESSION: Single live intrauterine gestation with mean gestational age of 38 weeks and 2 days. Reading Location: [facility]-
== END | disposition home or self-care (01) ==
PROVIDERS: PCP Physician Assistant; Referring Provider Obstetrics & Gynecology; Visit Provider Obstetrics & Gynecology
DX: O09.93 Supervision of high risk pregnancy, unspecified, third trimester (principal); Z3A.38 38 weeks gestation of pregnancy
CPT/HCPCS: 76816

== ENCOUNTER → 2024-10-25 | Outpatient (CLI) | payer SELFPAY ==
[2024-10-25 16:29] LABS: Absolute Lymphocyte Count 1.48 X10^3/uL (0.83-4.51); Absolute Neutrophil Count 5.4 X10^3/uL (2.0-7.7); Basophil# 0.01 X10^3/uL; Basophil% 0.1 % (0-1); Eosinophil# 0.07 X10^3/uL; Eosinophils% 0.9 % (0-5); Hematocrit 36.7 % (37-47); Hemoglobin 12.5 g/dL (12.0-15.0); Lymphocyte # 1.48 X10^3/ul (0.83-4.51); Lymphocyte % 19.5 % (19-41); Mean Corp Hgb Conc 34.1 g/dL (32-36); Mean Corpuscular Hgb 31.9 pg (27.0-32.0); Mean Corpuscular Volume 93.6 fL (81-99); Monocyte# 0.61 X10^3/uL; NRBC Flagged by Analyzer 0 % (0-5); Neutrophil # 5.38 X10^3/uL (2.7-7.7); Neutrophil % 70.8 % (47-70); Platelet Count 215 K/mm3 (150-450); RBC Distribution Width CV 13.7 % (11.6-14.6); RBC Distribution Width SD 46.7 fl (35.1-43.9); Red Blood Count 3.92 M/mm3 (4.2-5.4); White Blood Count 7.6 K/mm3 (4.4-11.0)
[2024-10-25 17:17] LABS: Glucose Challenge Gest 1H 50g 106 mg/dL (70-140); HIV Nonreactive (Nonreactive); Hepatitis B Surface Antigen Nonreactive (Nonreactive); Hepatitis C Antibody Nonreactive (Nonreactive); Rubella IgG REAC (Nonreactive); Syphilis Antibodies Nonreactive (Nonreactive)
== END | disposition home or self-care (01) ==
PROVIDERS: Obstetrics & Gynecology; PCP Physician Assistant; Referring Provider Advanced Practice Midwife; Visit Provider Advanced Practice Midwife
DX: O09.93 Supervision of high risk pregnancy, unspecified, third trimester (principal); Z13.1 Encounter for screening for diabetes mellitus; Z3A.00 Weeks of gestation of pregnancy not specified
CPT/HCPCS: 36415; 82950; 85025; 86703; 86762; 86780; 86803; 86850; 86900; 86901; 87340; 87491; 87591

== ENCOUNTER 2024-10-31 05:10 | Inpatient (IN) | payer SELFPAY, OTHER ==
[2024-10-31] VITALS (22 sets, daily range): BP systolic 103–134; BP diastolic 50–79; PULSE 75–98; RESP 14–18; TEMP 36.1–36.8; O2SAT 93–100; BMI 37.3
[2024-10-31] MEDS: Lactated Ringers 1,000 ML 999 ML IV (05:40)
[2024-10-31] MEDS: Acetaminophen 500 MG Tablet 1000 MG PO ×4 (06:11→23:58)
[2024-10-31 06:44] LABS: Absolute Lymphocyte Count 1.62 X10^3/uL (0.83-4.51); Absolute Neutrophil Count 6.4 X10^3/uL (2.0-7.7); Basophil# 0.02 X10^3/uL; Basophil% 0.2 % (0-1); Eosinophil# 0.08 X10^3/uL; Eosinophils% 0.9 % (0-5); Hematocrit 37.3 % (37-47); Hemoglobin 12.7 g/dL (12.0-15.0); Lymphocyte # 1.62 X10^3/ul (0.83-4.51); Lymphocyte % 18.5 % (19-41); Mean Corpuscular Hgb 31.8 pg (27.0-32.0); Mean Corpuscular Volume 93.3 fL (81-99); Mean Platelet Vol. 10.2 fl (6.2-12.0); Monocyte# 0.63 X10^3/uL; Monocyte% 7.2 % (0-10); NRBC Flagged by Analyzer 0 % (0-5); Neutrophil % 72.9 % (47-70); Platelet Count 196 K/mm3 (150-450); RBC Distribution Width CV 13.7 % (11.6-14.6); RBC Distribution Width SD 46.5 fl (35.1-43.9); White Blood Count 8.8 K/mm3 (4.4-11.0)
[2024-10-31] MEDS: Sodium Citrate/Citric Acid 30 ML UDC PO (07:05)
[2024-10-31 07:06] LABS: Syphilis Antibodies Nonreactive (Nonreactive)
[2024-10-31] MEDS: Lactated Ringers 1,000 ML 150 ML IV (07:07)
[2024-10-31] MEDS: Cefazolin 2 GM in Syringe IV (07:13)
--- NOTE | 2024-10-31 07:13 | PCM.HP.OB ---
HPI - General General Date of Admission: 10/31/24 HPI Narrative DARLENE SHETTY, is a 29 y/o @ 39 weeks 2 days who presents to L&D for a repeat section. She had 2 prior sections with us and did not present to our office for care until last week. Her glucola was normal, as was growth scan and labs. She is RH neg and did not receive rhogam. She did not give a reason for late prental care other than that she did not feel anything was wrong with the and saw a community health representative a few times. We do not have records that she saw anyone or received medical attention during the . The baby has been transverse x 2 weeks when we did her last scan and still is today. Maternal Data Information CATINA Calculator Estimated Delivery Date Method Current WG Current Estimate 11/05/24 LMP (Certain) 39w 2d Other Estimates 11/05/24 Ultrasound #1 39w 2d PFSH PFSH Medical History Superficial varicosities Supervision of normal Breech presentation Home Medications ?Medication ?Instructions ?Recorded ?Last Taken ?Type Prenatabs FA 1 tab PO DAILY Check with primary 08/28/18 10/30/24 21:00 History doctor Allergy/AdvReac Type Severity Reaction Status Date / Time No Known Allergies Allergy Verified 10/31/24 05:36 Family History Grandfather No problems noted. Grandfather Myocardial infarction Grandmother Cancer Surgical History Status post section Previous section S/P History of appendectomy H/O heart artery stent Social History Smoking Status: Never smoker alcohol intake: never substance use type: does not use caffeine: No seatbelt use: always do you feel safe at home: Yes additional social history: [employer] Patient is a stay at home mom History 6 Elective abortions Hx Para 5 Spontaneous abortions Hx # Term Pregnancies Ectopic pregnancies Hx # Pregnancies Multiple births # of living children 5 Past Pregnancies Del. Date Name GA/Weeks Outcome Route Bth Weight Gen Labor Lgth Anesthesia Del Locatn Provider FOB Unknown Ynes live - full term Unknown 2016 Brionna live - full term Unknown Melanie Unknown Gloria [facility] Dr. Pizarro 07/15/22 Farhat 39 live - full term Male spinal [facility] Annika Vance Delivery Date: Last Updated by: Erica Renny Cordero Version Delivery Date: 07/15/22 Last Updated by: Kristen chapa c/d Visit Details OB Flowsheet Initial Weight: Not Recorded Date <del>?</del> EGA Weight BP Urine Prot <del>?</del> Glucose FHR FuHt Pres Dilation <del>?</del> Effaced St Visit Note 10/25/24 <del>?</del> 38w 3d 224 lb 8 oz 123/79 <del>?</del> 135 Transverse 0 <del>?</del> -4 JV- ultrasound yesterday confirms that the CATINA is consistent with LMP. NEw ob labs and glucola done today. She was seeing a community health representative and requires a repeat section next week. ROS Constitutional Constitutional: Denies change in weight, fatigue, fever(s), headache(s), poor appetite or weakness Eyes Eyes: Denies blurry vision, change in vision, seeing flashes or spots in vision ENT HEENT: Denies dizziness, headache(s), loss taste/smell or sore throat Cardiovascular Cardiovascular: Denies chest pain, dizziness, dyspnea, irregular heart rhythm, leg edema, palpitations, rapid heart rate or vomiting Respiratory/Chest Respiratory/Chest: Denies chest tightness, cough, dyspnea or breast pain Gastrointestinal Gastrointestinal: Denies abdominal pain, anorexia, constipation, cramping, diarrhea, hemorrhoids, vomiting or weight changes Genitourinary Genitourinary: Denies dysuria, flank pain, genital lesions, genital pain, urinary frequency or urinary urgency Musculoskeletal Musculoskeletal: Denies back pain, difficulty walking, joint pain, limited range of motion, muscle cramps or numbness Integumentary Integumentary: Denies lesions or unusual bruising Neurologic Neurologic: Denies abnormal movements, abnormal speech, dizziness, numbness, seizure-like activity or syncope Psychiatric Psychiatric: Denies anxiety, behavioral changes, change in appetite, change in libido, cognitive impairment, confusion, depression, difficulty concentrating, hallucinations or suicidal thoughts Endocrine Endocrinology: Denies excessive sweating, polydipsia or polyuria Hematologic/Lymphatic Hematologic/Lymphatic: Denies easy bleeding, easy bruising or lymphadenopathy Allergic/Immunologic Allergic/Immunologic: Denies itchy eyes, lip swelling, seasonal rhinorrhea, rhinitis, throat swelling, tongue swelling, eczemia, wheezing or asthma Vital Signs Vital Signs Vital Signs: 10/31/24 05:28 10/31/24 05:28 10/31/24 05:28 Temperature Temperature Source Temporal Pulse Rate 83 Respiratory Rate Blood Pressure 134/79 H Blood Pressure Mean BP Systolic 134 BP Diastolic 79 Blood Pressure Source Blood Pressure Position Blood Pressure Location Pulse Ox Oxygen Delivery Method 10/31/24 05:28 10/31/24 05:28 10/31/24 05:28 Temperature 97.1 F L Temperature Source Pulse Rate Respiratory Rate 16 Blood Pressure Blood Pressure Mean BP Systolic BP Diastolic Blood Pressure Source Blood Pressure Position Blood Pressure Location Pulse Ox 98 Oxygen Delivery Method 10/31/24 06:06 Temperature 97.1 F L Temperature Source Temporal Pulse Rate 83 Respiratory Rate 16 Blood Pressure 134/79 H Blood Pressure Mean 97 BP Systolic BP Diastolic Blood Pressure Source Monitor Blood Pressure Position Semi-Fowlers Blood Pressure Location Right Arm Pulse Ox 98 Oxygen Delivery Method Room Air Weight Weight: 224 lb 10.417 oz Body Mass Index (BMI) 37.3 Physical Exam Const alert, oriented x3, no apparent distress and healthy appearing General Appearance: cooperative; Negative for anxious HEENT normocephalic Face and Sinus: normal facial exam Eyes EOMs intact bilaterally and no scleral icterus General Eye: normal appearance of both eyes Neck full ROM and supple Lymph Lymphatic: no lymphadenopathy noted Chest Chest: abnormal inspection of the chest Resp normal respiratory effort Effort and Inspection: able to speak in complete sentences Cardio regular rate GI soft to palpation and non-tender Inspection: gravid Palpation: soft; Negative for tender external exam normal Amniotic Fluid: ROM+plus Back/Spine no CVA tenderness Extremity normal to inspection, full ROM and no clubbing, cyanosis or edema General Extremity: Negative for calf tenderness or edema Skin Lesions: no lesions Rashes: no rashes Psych mental status grossly normal Labs Labs Labs: Blood Type O NEGATIVE Antibody Screen NEGATIVE Hct 37.3 % (37-47) Hgb 12.7 g/dL (12.0-15.0) Obstetrics Ultrasound Syphilis Total Ab Nonreactive (Nonreactive) Rubella IgG Antibody REAC (Nonreactive) Hep Bs Antigen Nonreactive (Nonreactive) Hepatitis C Antibody Nonreactive (Nonreactive) HIV 1&2 Antibody Nonreactive (Nonreactive) Glucose 1 Hr 50 gm 106 mg/dL (70-140) Group B Strep DNA Negative (Negative) Rhogam given: No Assessment & Plan (1) Status post section: COMMENT: late transfer of care from community health representative. had one visit with us. did glucloa and labs at the one appt as well as a growth scan. plan repeat section for history of prior section and also unstable lie. RLTCS scheduled for 10/31 @ 7:15 with JESSY (2) : QUALIFIERS: Weeks of gestation: 38 weeks Qualified Code(s): Z3A.38 - 38 weeks gestation of (3) Supervision of high risk in third trimester: COMMENT: CATINA 11/05/24 Brionna Samayoa Fannie, Wilma, Raymond : Juan (4) Rh negative status during : COMMENT: FOB also Rh negative per patient PLAN: Plan After discussing the patient's diagnosis and treatment plan options, patient wishes to proceed with surgical management. I have discussed with the patient the risks, benefits, and alternatives of the procedure which include but are not limited to risks of anesthesia, bleeding, infection, possible damage to bowel, bladder, or surrounding vasculature which could lead to additional surgery to evaluate any complications. Patient agrees to procedure and wishes to proceed. ACOG/uptodate references given for additional information regarding procedure. plan repeat section. patient declines tubal ligation
--- NOTE | 2024-10-31 07:18 | DCINST_ITS ---
Discharge Instructions Diet Discharge Diet: No restrictions DC O2, CPAP, BIPAP needs Home O2 Discharge instructions: No Dressing / Incision Discharge Activity: May Not Drive (for 2 weeks or while taking narcotic pain medications.), May Shower and May Take a Tub Bath (in 7 days.) May resume sexual activity in: 4-6 weeks Weight Bearing Status: Full weight bearing Lifting Restrictions: 20 pounds Dressing / Incision Call your doctor if your incision/area has: Continuous Slow Oozing, Sudden Increased Bleeding, Increased Pain/ Swelling, Increased Redness and Foul Smelling Discharge Call your doctor if you observe: Fever of 101 or Higher and Using more than 1 pad per hour Suture Line Care: Avoid Pulling/Pushing and Avoid Pinching/Bending Cleanse incision/area with: Soap & Water and Keep Dressing Clean & Dry Follow Up Care Please Follow Up With: Annika Vance DO When: Call [phone] to make an appointment for an incision check in 1-2 weeks. Test Results: Test results from this visit will be discussed in further detail at your follow- up appointment, if applicable. Discharge Plan Admission Admit Date/Time: 10/31/24 05:10 Primary Reason for Your Visit: section Attending Provider: Annika Vance Primary Care Provider: Brendan Nayak Discharge Orders/Prescriptions Prescriptions: New ibuprofen 800 mg tablet 800 mg PO Q8H PRN (Reason: pain) Qty: 30 0RF No Action Prenatabs FA 1 tab PO DAILY Referrals / Follow Up: Brendan Nayak PA-C [Primary Care Provider] - Disposition Disposition (needs filled in before D/C Order can be placed): Home, Self Care
--- NOTE | 2024-10-31 08:12 | PCM.POST.ANE ---
Anesthesia: Postop Eval I Current Vital Signs Temperature: 97 F Pulse Rate: 75 Blood Pressure: 120/68 Respiratory Rate: 14 Pulse Ox: 100 Oxygen Delivery Method: Room Air Assessment Airway patent: Yes Spontaneous unlabored respirations: Yes Mental status: Awake and Calm nausea: No Vomiting: No Anesthesia Complication: No Fluid Hydration Crystalloid volume administer (ml): 800 Total IV fluid infused: 800 Progress Note Anesthesia document: Postop Eval 1 completed: Yes
--- NOTE | 2024-10-31 08:15 | POSTOPAN2_ITS ---
Anesthesia Postop Eval I Sum Postop Eval Completion status Anesthesia document: Postop Eval 1 completed: Yes Anesthesia Postop Eval I Summary Anesthesia Postop Eval I Summary: Anesthesia Postop Eval I: Assessment Summary Airway patent Yes 10/31/24 08:13 AGENT [email or web address] Spontaneous unlabored Yes 10/31/24 08:13 AGENT [email or web address] respirations Mental status Awake,Calm 10/31/24 08:13 AGENT [email or web address] nausea No 10/31/24 08:13 AGENT [email or web address] Vomiting No 10/31/24 08:13 AGENT [email or web address] Anesthesia Postop Eval I: Fluid Summary Crystalloid volume administer 800 10/31/24 08:13 AGENT [email or web address] (ml) Colloids volume administered ( ml) Blood Product volume administered (ml) Total IV fluid infused 800 10/31/24 08:13 AGENT [email or web address] Anesthesia Postop Eval I: Summary Notes Anesthesia Complication No 10/31/24 08:13 AGENT [email or web address] Anesthesia Complication Comment: Post-operative progress note Anesthesia: Postop Eval II Evaluation Mental status: Awake and Calm Pain Level: 0 nausea: No Vomiting: No Complications Anesthesia Complication: No
--- NOTE | 2024-10-31 08:15 | PCM.POSTANE2 ---
Anesthesia Postop Eval I Sum Postop Eval Completion status Anesthesia document: Postop Eval 1 completed: Yes Anesthesia Postop Eval I Summary Anesthesia Postop Eval I Summary: Anesthesia Postop Eval I: Assessment Summary Airway patent Yes 10/31/24 08:13 LINE SERVICE ATTENDANT.[email or web address] Spontaneous unlabored Yes 10/31/24 08:13 LINE SERVICE ATTENDANT.MDOT respirations Mental status Awake,Calm 10/31/24 08:13 LINE SERVICE ATTENDANT.MDOT nausea No 10/31/24 08:13 LINE SERVICE ATTENDANT.MDOT Vomiting No 10/31/24 08:13 LINE SERVICE ATTENDANT.MDOT Anesthesia Postop Eval I: Fluid Summary Crystalloid volume administer 800 10/31/24 08:13 LINE SERVICE ATTENDANT.MDOT (ml) Colloids volume administered ( ml) Blood Product volume administered (ml) Total IV fluid infused 800 10/31/24 08:13 LINE SERVICE ATTENDANT.MDOT Anesthesia Postop Eval I: Summary Notes Anesthesia Complication No 10/31/24 08:13 LINE SERVICE ATTENDANT.MDOT Anesthesia Complication Comment: Post-operative progress note Anesthesia: Postop Eval II Evaluation Mental status: Awake and Calm Pain Level: 0 nausea: No Vomiting: No Complications Anesthesia Complication: No
--- NOTE | 2024-10-31 08:18 | OP.PCM_ITS ---
Assessment & Plan (1) Limited care: (2) Status post section: COMMENT: late transfer of care from manager of community relations. had one visit with us. did glucloa and labs at the one appt as well as a growth scan. plan repeat section for history of prior section and also unstable lie. RLTCS scheduled for 10/31 @ 7:15 with JESSY (3) : QUALIFIERS: Weeks of gestation: 38 weeks Qualified Code(s): Z3A.38 - 38 weeks gestation of (4) Supervision of high risk in third trimester: COMMENT: CATINA 11/05/24 Brionna Samayoa Fannie, Wilma, Raymond : Juan (5) Rh negative status during : COMMENT: FOB also Rh negative per patient (6) Transverse lie of fetus: Maternal Data Information CATINA Calculator Estimated Delivery Date Method Current WG Current Estimate 11/05/24 LMP (Certain) 39w 2d Other Estimates 11/05/24 Ultrasound #1 39w 2d Final CATINA: 11/05/24 Final CATINA Source: LMP Gestational age: 39 weeks 2 days Operative Report (OB) Details Procedure Type: low transverse Date of Procedure: 10/31/24 Procedure Start Time: 07:34 Procedure Stop Time: 08:09 Time of Delivery: 07:39 Pre-Operative Diagnosis: Repeat Elective Post-Operative Diagnosis: Same as Pre-operative diagnosis Classification: Scheduled Type of Anesthesia: Spinal Antibiotic Given: Ancef 2 grams IV x1 Drain: Rosales to straight drain Estimated Blood Loss: 500cc Findings Description of surgery: The patient is a 89 y/o @ 39 weeks 2 days presented for repeat . Spinal anesthesia was placed without difficulty. Rosales catheter was placed. The patient was placed in the dorsal supine position with leftward tilt. Patient was prepped and draped in the normal sterile fashion. Pfannenstiel skin incision was made with the scalpel and carried through to the underlying layer of fascia with the scalpel. Fascia was nicked in the midline and the incision extended laterally. The rectus bellies were dissected off superiorly and inferiorly with out complication both sharply and bluntly. The peritoneum was entered digitally. The incision was stretched and a low transverse uterine incision was made with the scalpel. The infant was found to be in a maternal left transverse position. The was internally converted to a vertex presentation. The head was delivered atraumatically followed by the anterior and posterior shoulders without complication the rest of the infant delivered. The cord was clamped and cut and the infant was handed off to awaiting nurse. The placenta was delivered spontaneously immediately following and was noted to be intact and have a three-vessel cord. The uterus was exteriorized cleared of all clots and debris, and the incision was closed in a double layer closure using #1 Vicryl and #1 Monocryl. The ovaries and fallopian tubes were noted to be within normal limits. The uterus was returned to the maternal abdomen and gutters were cleared of all clots and debris. The peritoneum was closed with 3-0 Monocryl in a running fashion. Fascia was closed with 0 PDS in a running fashion. Subcutaneous tissue was copiously irrigated and the skin was closed with 3-0 Monocryl in a subcuticular fashion. Mepilex dressing was applied without complication. Patient was taken to recovery in stable condition. It was discussed with the patient that based on the clinical information obtained during this encounter, combined with her history, at this time I would recommend [ ] for future deliveries if further pregnancies are desired. Surgical findings: viable female Presentation: Vertex Amniotic Membrane Rupture Type: Artificial Amniotic Fluid Description: Clear Placental Delivery Description: Manual Removal Specimen collected: No Cord Vessel Description: 3 Vessels Cord Entanglement: Around neck x 1, loose Nuchal Cord Compression: Without compression A gender: Female (1 minute): 8 (5 minute): 9 Delayed Cord Clamping: Yes Digital Asset Specialist environmental conservation officer: Yes Wellness Manager: Fabricio Kolb Tasks completed by electrician assistant: Closing, Hemostasis: Tie and Retracting Additional physician assistant surgery?: No Complications Complications: No Admit VTE Documentation VTE Present on Admission: No VTE Mechan Device Prophylaxis: SCD's VTE Pharm Prophylaxis Ordered: No Multi Select Codes Urinary/Genital Urinary/Genital CPT Codes: 32828 Delivery [facility]
[2024-10-31] MEDS: Oxytocin 15 Units/NS 250ml 15 UNITS/250 ML IV.SOLN 83 UNITS IV (08:20)
[2024-10-31] MEDS: Ketorolac 30 MG/ML Syringe IV ×3 (09:15→21:01)
[2024-10-31] MEDS: Senna/Docusate Sodium 1 Tablet PO (09:15)
--- NOTE | 2024-10-31 09:51 | NURSING ---
0945-noted quarter size clot
[2024-10-31] MEDS: Lactated Ringers 1,000 ML 100 ML IV (11:29)
[2024-10-31] MEDS: 0.9% Saline Lock 10 ML Syringe IV ×2 (14:59→21:01)
[2024-10-31] MEDS: Sodium Chloride 0.65% 1 SPRAY SPRAY.BTL 2 SPRAY NASAL (19:37)
[2024-11-01 00:15] VITALS: BP 117/60; PULSE 94; RESP 15; TEMP 36.6; O2SAT 95
[2024-11-01] MEDS: 0.9% Saline Lock 10 ML Syringe IV (03:23)
[2024-11-01] MEDS: Ketorolac 30 MG/ML Syringe IV (03:23)
[2024-11-01 03:41] VITALS: BP 112/72; PULSE 84; RESP 16; TEMP 36.7; O2SAT 96
[2024-11-01 06:03] LABS: Hematocrit 32.9 % (37-47); Mean Corp Hgb Conc 33.4 g/dL (32-36); Mean Corpuscular Hgb 31.8 pg (27.0-32.0); Mean Corpuscular Volume 95.1 fL (81-99); Mean Platelet Vol. 9.9 fl (6.2-12.0); Platelet Count 153 K/mm3 (150-450); RBC Distribution Width CV 14.2 % (11.6-14.6); RBC Distribution Width SD 48.8 fl (35.1-43.9); Red Blood Count 3.46 M/mm3 (4.2-5.4); White Blood Count 7.6 K/mm3 (4.4-11.0)
[2024-11-01] MEDS: Acetaminophen 500 MG Tablet 1000 MG PO (06:56)
[2024-11-01 08:10] VITALS: BP 130/82; PULSE 74; RESP 16; TEMP 36.3; O2SAT 96
--- NOTE | 2024-11-01 09:17 | PCM.PN.OB ---
Subjective Subjective Patient is laying in bed comfortably without complaints. She states that she slept on an off during the night. Lochia is mild and pain is minimal. Objective Data Objective Data Vital Signs: Vital Signs Temp Pulse Resp BP Pulse Ox O2 Del Method 97.3 F L 74 16 130/82 H 96 Room Air 11/01/24 08:10 11/01/24 08:10 11/01/24 08:10 11/01/24 08:10 11/01/24 08:10 11/01/24 08:10 Oxygen Delivery Method Room Air Weight: 224 lb 10.417 oz Body Mass Index (BMI) 37.3 Intake & Output: Intake and Output for Last 24 Hours 10/30/24 10/31/24 11/01/24 23:59 23:59 23:59 Intake Total 4640 / 4640 Output Total 0 / 0 Balance 2560 / 2560 Lab / Micro Data 11/01/24 05:50 Labs: Laboratory Results - last 24 hr 11/01/24 05:50: WBC 7.6, RBC 3.46 L, Hgb 11.0 L, Hct 32.9 L, MCV 95.1, MCH 31.8, MCHC 33.4, RDW Std Deviation 48.8 H, RDW Coeff of Alexandra 14.2, Plt Count 153, MPV 9.9 ROS Constitutional Constitutional: Reports systems reviewed and no addt'l complaints, except as documented Cardiovascular Cardiovascular: Denies chest pain, dizziness, dyspnea or irregular heart rhythm Respiratory/Chest Respiratory/Chest: Denies cough, pain on inspiration or shortness of breath at rest Gastrointestinal Gastrointestinal: Denies abdominal pain, nausea or vomiting Genitourinary Genitourinary: Denies burning urination Musculoskeletal Musculoskeletal: Denies muscle cramps, muscle spasms or muscle weakness Neurologic Neurologic: Denies confusion, dizziness, headache(s) or lack of coordination Psychiatric Psychiatric: Denies anxiety, behavioral changes or depression Physical Exam HEENT normocephalic Resp normal respiratory effort and normal air movement GI soft to palpation, non-tender and non-distended Rectal Exam: other Other Details: Incision is clean, dry, and intact no CVA tenderness Extremity normal to inspection General Extremity: edema bilateral (trace ) Assessment & Plan (1) Status post section: COMMENT: late transfer of care from nurse staff community health. had one visit with us. did glucloa and labs at the one appt as well as a growth scan. plan repeat section for history of prior section and also unstable lie. RLTCS scheduled for 10/31 @ 7:15 with JESSY (2) Transverse lie of fetus: (3) Limited care: (4) Supervision of high risk in third trimester: COMMENT: CATINA 11/05/24 PC Brionna Quick Fannie, Wilma, Raymond : Juan (5) Rh negative status during : COMMENT: FOB also Rh negative per patient PLAN: Plan s/p LTCS PPD #1 1. routine post care 2. breast feeding- support given 3. rh neg- work up ordered 4. rubella immune 5. ok to dc to home today
[2024-11-01] MEDS: Senna/Docusate Sodium 1 Tablet PO (09:36)
[2024-11-01] MEDS: Ibuprofen 600 MG Tablet PO (09:36)
== END 2024-11-01 11:40 | disposition home or self-care (01) | DRG 788 ==
PROVIDERS: Admitting Provider Obstetrics & Gynecology; PCP Physician Assistant; Referring Provider Obstetrics & Gynecology; Visit Provider Obstetrics & Gynecology
PROC: 10D00Z1 Extraction of Products of Conception, Low, Open Approach (ICD-10-PCS; CPT 59514; principal; 2024-10-31 07:00)
DX: O32.2XX0 Maternal care for transverse and oblique lie, not applicable or unspecified (principal); O34.211 Maternal care for low transverse scar from previous cesarean delivery; O69.81X0 Labor and delivery complicated by cord around neck, without compression, not applicable or unspecified; Z37.0 Single live birth; Z3A.39 39 weeks gestation of pregnancy
CPT/HCPCS: 59025; 59050; 85025; 85027; 86695; 86696; 86780; 86850; 86900; 86901; 99221; A4216; G0378; J2405